=== PATIENT | female | born 1990 | race Caucasian/White ===

== ENCOUNTER 2020-08-01 08:08 | Outpatient (REF) | payer OTHER, SELFPAY | END 2020-08-01 08:09 | disposition home or self-care (01) | LOC: HO.LAB 08:08 | PROVIDERS: Visit Provider Internal Medicine | DX: Z20.828 Contact with and (suspected) exposure to other viral communicable diseases (principal) | CPT/HCPCS: C9803; U0003 ==

== ENCOUNTER 2020-09-11 16:37 | Outpatient (REF) | payer OTHER, SELFPAY ==
[2020-09-11 17:48] LABS: MANUAL DIFF FLAG NO
[2020-09-11 18:10] LABS: Basophils Percent Auto 0.4 % (0-2); Eosinophils Absolute Auto 0.2 X10*3/uL (0.0-0.4); Eosinophils Percent Auto 1.8 % (0-4); Hematocrit 42.3 % (37-47); Hemoglobin 13.5 g/dl (12.0-16.0); Imm Gran Abs Auto 0.04 X10*3/uL (0.00-0.03); Imm Gran Pct Auto 0.4 % (0.0-0.4); Lymphocytes Absolute Auto 1.8 X10*3/uL (1.2-4.9); Lymphocytes Percent Auto 19.6 % (20-40); Mean Corpuscular HGB Conc 31.9 g/dl (31.0-35.0); Mean Corpuscular Hemoglobin 29.4 pg (27.0-33.0); Mean Corpuscular Volume 92.2 fL (80-98); Mean Platelet Volume 11.1 fL (9.4-12.3); Monocytes Absolute Auto 0.8 X10*3/uL (0.1-1.2); Neutrophils Absolute Auto 6.5 X10*3/uL (2.0-8.3); Neutrophils Percent Auto 69.8 % (45-73); Platelet Count 415 X10*3/uL (160-400); Red Blood Count 4.59 X10*6/uL (4.20-5.50); Red Cell Distribution Width 12.1 % (11.0-16.0); White Blood Count 9.4 X10*3/uL (4.8-10.8)
[2020-09-11 18:23] LABS: Alanine Aminotransferase 150 U/L (0-31); Albumin Level 4.6 g/dL (3.5-5.0); Alkaline Phosphatase 202 U/L (39-117); Anion Gap 13 (12-20); Aspartate Amino Transferase 55 U/L (5-31); Bilirubin Direct 0.2 mg/dL (0.0-0.5); Bilirubin Total 0.4 mg/dL (0.0-1.0); Blood Urea Nitrogen 9 mg/dL (9-16); Calcium 9.4 mg/dL (8.4-10.2); Carbon Dioxide 27 mmol/L (22-29); Chloride 104 mmol/L (96-108); Cholesterol 209 mg/dL; Estimated Glomerular Filt Rate > 60; Glucose Fasting 116 mg/dL (60-99); HDL Cholesterol 44 mg/dL; LDL Cholesterol Calculated 133 mg/dl; Potassium 3.9 mmol/l (3.3-5.1); Sodium 140 mmol/L (135-145); Total Protein 7.8 g/dL (6.5-8.0); Triglycerides 164 mg/dL
== END 2020-09-11 16:38 | disposition home or self-care (01) ==
LOC: HO.LAB 16:37
PROVIDERS: PCP Nurse Practitioner Family; Visit Provider Nurse Practitioner Family
DX: Z00.00 Encounter for general adult medical examination without abnormal findings (principal); R10.11 Right upper quadrant pain
CPT/HCPCS: 36415; 80053; 80061; 80076; 82248; 85025

== ENCOUNTER 2020-10-16 08:02 | Outpatient (REF) | payer OTHER, SELFPAY ==
--- NOTE | ~2020-10-16 | US_ITS ---
EXAMINATION: US ABDOMEN COMPLETE CLINICAL INFORMATION: Right upper quadrant pain. COMPARISON: Ultrasound abdomen 05/25/2019. CT abdomen pelvis 05/12/2018. TECHNIQUE: Real-time imaging of the abdominal viscera. FINDINGS: PANCREAS: Visualized pancreas is normal in appearance. ABDOMINAL AORTA: The proximal, mid, and distal segments are normal in caliber. INFERIOR VENA CAVA: Visualized portions are normal. LIVER: There is diffusely increased hepatic echogenicity and sound attenuation consistent with diffuse hepatic steatosis. Diffuse coarse hepatic echogenicity. The liver is normal in size. The liver contour is normal. No focal hepatic lesion. There is no intrahepatic biliary duct dilatation seen. GALLBLADDER: Surgically absent. COMMON BILE DUCT: Normal in caliber measuring 0.6 cm in diameter. RIGHT KIDNEY: Normal. No hydronephrosis. No renal calculi or focal parenchymal lesions. The kidney measures 12.6 cm in maximum dimension. LEFT KIDNEY: Normal. No hydronephrosis. No renal calculi or focal parenchymal lesions. The kidney measures 12.1 cm in maximum dimension. SPLEEN: Normal. The spleen measures 12.5 cm in maximum dimension. FREE FLUID: None. US/US abdomen complete IMPRESSION: There is diffusely increased, coarsened hepatic echogenicity and sound attenuation, consistent with diffuse hepatic steatosis. No focal lesion seen. No biliary ductal dilatation. Status post cholecystectomy.
== END 2020-10-16 08:03 | disposition home or self-care (01) ==
LOC: HO.US 08:02
PROVIDERS: PCP Nurse Practitioner Family; Visit Provider Nurse Practitioner Family
DX: R10.11 Right upper quadrant pain (principal)
CPT/HCPCS: 76700

== ENCOUNTER 2021-06-14 12:02 | Outpatient (REF) | payer OTHER, SELFPAY ==
[2021-06-14 12:16] LABS: Hematocrit 40.5 % (37-47); Hemoglobin 13.4 g/dl (12.0-16.0); Mean Corpuscular HGB Conc 33.1 g/dl (31.0-35.0); Mean Corpuscular Volume 90.6 fL (80-98); Platelet Count 383 X10*3/uL (160-400); Red Blood Count 4.47 X10*6/uL (4.20-5.50); Red Cell Distribution Width 12.6 % (11.0-16.0); White Blood Count 9.4 X10*3/uL (4.8-10.8)
[2021-06-14 12:49] LABS: Estimated Average Glucose 117 mg/dL; Hemoglobin A1c % 5.7 %
[2021-06-14 13:07] LABS: Alanine Aminotransferase 105 U/L (0-31); Albumin Level 4.5 g/dL (3.5-5.0); Alkaline Phosphatase 168 U/L (39-117); Anion Gap 14 (12-20); Aspartate Amino Transferase 44 U/L (5-31); Bilirubin Total 0.6 mg/dL (0.0-1.0); Blood Urea Nitrogen 9 mg/dL (9-16); Calcium 9.9 mg/dL (8.4-10.2); Carbon Dioxide 25 mmol/L (22-29); Chloride 106 mmol/L (96-108); Cholesterol 199 mg/dL; Estimated Glomerular Filt Rate > 60; Glucose Fasting 113 mg/dL (60-99); HDL Cholesterol 37 mg/dL; LDL Cholesterol Calculated 140 mg/dl; Potassium 4.9 mmol/L (3.3-5.1); Sodium 140 mmol/L (135-145); Total Protein 7.7 g/dL (6.5-8.0); Triglycerides 113 mg/dL
[2021-06-14 13:22] LABS: TSH reflex Free T4 3.39 uIU/mL (0.32-4.0)
== END 2021-06-14 12:03 | disposition home or self-care (01) ==
LOC: HO.LAB 12:02
PROVIDERS: PCP Physician Assistant; Visit Provider Physician Assistant
DX: R73.09 Other abnormal glucose (principal); E66.9 Obesity, unspecified; I10 Essential (primary) hypertension
CPT/HCPCS: 36415; 80053; 80061; 83036; 84443; 85027

== ENCOUNTER 2021-06-21 13:18 | Outpatient (REF) | payer OTHER, SELFPAY ==
--- NOTE | ~2021-06-21 | XR_ITS ---
EXAMINATION: XR THORACIC SPINE XR LUMBAR SPINE XR SACROILIAC JOINTS CLINICAL INFORMATION: Back pain. COMPARISON: Thoracic spine and lumbar spine radiographs dated 05/16/2019. TECHNIQUE: AP and lateral views of the thoracic spine. AP and lateral views of the lumbar spine, and lateral spot view of the lumbosacral junction. AP and bilateral oblique views of the sacroiliac joints. FINDINGS: THORACIC SPINE: Spinal alignment is anatomic. No spondylolisthesis. Vertebral body heights and intervertebral disc spaces are relatively well maintained and similar compared to prior. Very mild endplate osteophyte formation again noted at the mid thoracic levels, similar compared to prior. The visualized posterior elements are unremarkable. There are no acute osseous findings. Right upper quadrant surgical clips are again visualized. LUMBAR SPINE: There are 5 [id number]-[id number] lumbar-type vertebral bodies. Spinal alignment is anatomic. No spondylolisthesis. Vertebral body heights and intervertebral disc spaces are well maintained. No significant degenerative change. Previously noted anatomic variant L4 limbus vertebra is not as well seen due to slight differences in patient positioning. The posterior elements are unremarkable. There are no acute osseous findings. Surgical clip again seen projecting over the right hemipelvis, similar compared to prior. SACROILIAC JOINTS: The bilateral sacroiliac joints are normal and symmetric in appearance. There is no abnormal sclerosis, narrowing, or fusion. No appreciable osteophyte formation. The imaged bony pelvis and hips appear unremarkable. XR/XR lumbar spine 2-3V IMPRESSION: THORACIC SPINE: Mild multilevel mid thoracic spondylosis without significant interval change. Otherwise, unremarkable radiographs of the thoracic spine. LUMBAR SPINE: Unremarkable radiographs of the lumbar spine. SI JOINTS: Unremarkable radiographs of the sacroiliac joints.
--- NOTE | ~2021-06-21 | XR_ITS ---
EXAMINATION: XR THORACIC SPINE XR LUMBAR SPINE XR SACROILIAC JOINTS CLINICAL INFORMATION: Back pain. COMPARISON: Thoracic spine and lumbar spine radiographs dated 05/16/2019. TECHNIQUE: AP and lateral views of the thoracic spine. AP and lateral views of the lumbar spine, and lateral spot view of the lumbosacral junction. AP and bilateral oblique views of the sacroiliac joints. FINDINGS: THORACIC SPINE: Spinal alignment is anatomic. No spondylolisthesis. Vertebral body heights and intervertebral disc spaces are relatively well maintained and similar compared to prior. Very mild endplate osteophyte formation again noted at the mid thoracic levels, similar compared to prior. The visualized posterior elements are unremarkable. There are no acute osseous findings. Right upper quadrant surgical clips are again visualized. LUMBAR SPINE: There are 5 axu-ysx-yvupogf lumbar-type vertebral bodies. Spinal alignment is anatomic. No spondylolisthesis. Vertebral body heights and intervertebral disc spaces are well maintained. No significant degenerative change. Previously noted anatomic variant L4 limbus vertebra is not as well seen due to slight differences in patient positioning. The posterior elements are unremarkable. There are no acute osseous findings. Surgical clip again seen projecting over the right hemipelvis, similar compared to prior. SACROILIAC JOINTS: The bilateral sacroiliac joints are normal and symmetric in appearance. There is no abnormal sclerosis, narrowing, or fusion. No appreciable osteophyte formation. The imaged bony pelvis and hips appear unremarkable. XR/XR thoracic spine 2V IMPRESSION: THORACIC SPINE: Mild multilevel mid thoracic spondylosis without significant interval change. Otherwise, unremarkable radiographs of the thoracic spine. LUMBAR SPINE: Unremarkable radiographs of the lumbar spine. SI JOINTS: Unremarkable radiographs of the sacroiliac joints.
--- NOTE | ~2021-06-21 | XR_ITS ---
EXAMINATION: XR THORACIC SPINE XR LUMBAR SPINE XR SACROILIAC JOINTS CLINICAL INFORMATION: Back pain. COMPARISON: Thoracic spine and lumbar spine radiographs dated 05/16/2019. TECHNIQUE: AP and lateral views of the thoracic spine. AP and lateral views of the lumbar spine, and lateral spot view of the lumbosacral junction. AP and bilateral oblique views of the sacroiliac joints. FINDINGS: THORACIC SPINE: Spinal alignment is anatomic. No spondylolisthesis. Vertebral body heights and intervertebral disc spaces are relatively well maintained and similar compared to prior. Very mild endplate osteophyte formation again noted at the mid thoracic levels, similar compared to prior. The visualized posterior elements are unremarkable. There are no acute osseous findings. Right upper quadrant surgical clips are again visualized. LUMBAR SPINE: There are 5 itc-khk-ymqykxr lumbar-type vertebral bodies. Spinal alignment is anatomic. No spondylolisthesis. Vertebral body heights and intervertebral disc spaces are well maintained. No significant degenerative change. Previously noted anatomic variant L4 limbus vertebra is not as well seen due to slight differences in patient positioning. The posterior elements are unremarkable. There are no acute osseous findings. Surgical clip again seen projecting over the right hemipelvis, similar compared to prior. SACROILIAC JOINTS: The bilateral sacroiliac joints are normal and symmetric in appearance. There is no abnormal sclerosis, narrowing, or fusion. No appreciable osteophyte formation. The imaged bony pelvis and hips appear unremarkable. XR/XR sacroiliac joint min 3V IMPRESSION: THORACIC SPINE: Mild multilevel mid thoracic spondylosis without significant interval change. Otherwise, unremarkable radiographs of the thoracic spine. LUMBAR SPINE: Unremarkable radiographs of the lumbar spine. SI JOINTS: Unremarkable radiographs of the sacroiliac joints.
[2021-06-24 08:06] LABS: HBS Num1 0.76 mIU/mL (0-7.99); HBc Num1 0.07 S/CO (0.00-0.79); HBsAGNum1 0.18 S/CO (0.00-0.99); Hepatitis B Core Antibody Nonreactive (Nonreactive); Hepatitis B Surface Antigen Negative (Negative); ~Hepatitis B Surface Antibody NONREACTIVE (Nonreactive)
[2021-06-24 08:15] LABS: HIV AB/AG Nonreactive (Nonreactive); HIV Num 1 0.07 S/CO (0.00-0.99); ~HepC Num1 0.09 S/CO (0.00-0.79); ~Hepatitis C Antibody Nonreactive (Nonreactive)
[2021-06-26 08:31] LABS: Hepatitis A Antibody IgM 0.14 Index (0-0.79); ~Hepatitis A Antibody IgM Nonreactive (Nonreactive)
== END 2021-06-21 13:19 | disposition home or self-care (01) ==
LOC: HO.XRAY 13:18
PROVIDERS: PCP Physician Assistant; Referring Provider Physician Assistant; Visit Provider Nurse Practitioner
DX: Z11.4 Encounter for screening for human immunodeficiency virus [HIV] (principal); R74.8 Abnormal levels of other serum enzymes; K75.81 Nonalcoholic steatohepatitis (NASH); K91.5 Postcholecystectomy syndrome; M54.6 Pain in thoracic spine; M54.50 Low back pain, unspecified
CPT/HCPCS: 36415; 72070; 72100; 72202; 86704; 86706; 86709; 86803; 87340; 87389; 99202

== ENCOUNTER 2021-07-01 08:29 | Outpatient (REF) | payer OTHER, SELFPAY ==
--- NOTE | ~2021-07-01 | US_ITS ---
EXAMINATION: US COMPLETE ABDOMEN WITH LIVER ELASTOGRAPHY CLINICAL INFORMATION: FRAGA COMPARISON: Previous abdominal ultrasound most recent October [address] scans of the abdomen and pelvis most recent May 2018 TECHNIQUE: Real-time imaging of the abdominal viscera. Noninvasive ultrasound liver fibrosis assessment is performed using Melvin ElastPQ point quantification shear wave elastography (pSWE) with a C5-2 MHz transducer. Multiple elastography samples are obtained. FINDINGS: PANCREAS: The head and body the pancreas are normal. The tail is not well visualized due to bowel gas. ABDOMINAL AORTA: The proximal, middle, and distal aortic segments are normal in caliber. INFERIOR VENA CAVA: Visualized portions are normal. LIVER: Liver echotexture is increased probably representing fatty infiltration. The liver is enlarged. The liver is normal in contour. No focal liver lesion or biliary duct dilatation is seen. The right lobe measures 21 cm in length. The left lobe measures 14 cm in length. Portal flow is appropriate/ hepatopedal. Shear wave liver elastography median stiffness is 0.2 m/s (reference: normal median stiffness is 1.3 m/s or less). IQR/median stiffness to assess sampling precision is 1.5 (reference: good quality data set is IQR/median stiffness of 0.15 or less). GALLBLADDER: Surgically removed. COMMON BILE DUCT: Normal in caliber measuring 0.5 cm in diameter. RIGHT KIDNEY: There is question of a small stone in the lower pole measuring 4 mm. No hydronephrosis. No focal parenchymal lesions. The kidney measures 11.5 cm in maximum dimension. LEFT KIDNEY: Normal. No hydronephrosis. No renal calculi or focal parenchymal lesions. The kidney measures 12 cm in maximum dimension. SPLEEN: Slightly enlarged. The spleen measures 13 cm in maximum dimension. FREE FLUID: None. US/US abdomen comp w elastography IMPRESSION: 1. Impression: Enlarged echogenic liver probably representing fatty infiltration. Mild splenomegaly. Question small right renal stone. Limited visualization of the tail the pancreas. 2. Liver elastography: Slightly limited due to sampling error. In the absence of other known clinical signs, rules out compensated advanced chronic liver disease. REFERENCE: Society of Radiologists in Ultrasound Liver Stiffness Thresholds (2020): LIVER STIFFNESS THRESHOLDS: *Liver Stiffness equal or less than 1.3 m/s: High probability of being normal. *Liver Stiffness less than 1.7 m/s: In the absence of other known clinical signs, rules out compensated advanced chronic liver disease. *Liver Stiffness 1.7-2.1 m/s: Suggestive of compensated advanced chronic liver disease but need further test for confirmation. *Liver Stiffness over 2.1 m/s: Rules in compensated advanced chronic liver disease. *Liver Stiffness over 2.4 m/s: Suggestive of clinically significant portal hypertension. QUALITY OF DATA SET: *IQR/Median value equal or less than 0.15 implies a quality data set. *IQR/Median value over 0.15 implies a poor quality data set. SIGNIFICANT CHANGE FROM PRIOR EXAM: Significant change if liver stiffness measurement is 10% or greater from prior exam. OTHER CONSIDERATIONS: The stage of liver fibrosis may be overestimated in the setting of acute hepatitis, liver inflammation, elevated liver function tests, hepatic vascular congestion, obstructive cholestasis, non-fasting state, and infiltrative diseases such as amyloidosis and lymphoma. In some patients with NAFLD, the liver stiffness thresholds for compensated advanced chronic liver disease may be lower. In causes other than viral hepatitis and NAFLD, liver stiffness thresholds are not well established.
== END 2021-07-01 08:30 | disposition home or self-care (01) ==
LOC: HO.US 08:29
PROVIDERS: PCP Physician Assistant; Visit Provider Nurse Practitioner
DX: K75.81 Nonalcoholic steatohepatitis (NASH) (principal); R74.8 Abnormal levels of other serum enzymes; M54.6 Pain in thoracic spine
CPT/HCPCS: 76705; 76981

== ENCOUNTER → 2021-07-05 13:02 | Outpatient (BNVA) | payer OTHER, SELFPAY | PROVIDERS: PCP Physician Assistant; Referring Provider Physician Assistant; Visit Provider Nurse Practitioner | DX: K75.81 Nonalcoholic steatohepatitis (NASH) (principal); K91.5 Postcholecystectomy syndrome; R10.11 Right upper quadrant pain; M54.6 Pain in thoracic spine | CPT/HCPCS: 99212 ==

== ENCOUNTER 2021-07-18 09:04 | Outpatient (REF) | payer OTHER, SELFPAY | END 2021-07-18 09:05 | disposition home or self-care (01) | LOC: HO.LAB 09:04 | PROVIDERS: PCP Physician Assistant; Visit Provider Internal Medicine | DX: Z20.822 Contact with and (suspected) exposure to COVID-19 (principal) | CPT/HCPCS: C9803; U0003; U0005 ==

== ENCOUNTER 2021-07-22 10:33 | Outpatient (REF) | payer OTHER, SELFPAY | END 2021-07-22 10:34 | disposition home or self-care (01) | LOC: HO.LAB 10:33 | PROVIDERS: PCP Physician Assistant; Visit Provider Internal Medicine | DX: Z20.822 Contact with and (suspected) exposure to COVID-19 (principal) | CPT/HCPCS: C9803; U0003; U0005 ==

== ENCOUNTER 2021-09-17 13:08 | Outpatient (REF) | payer OTHER, SELFPAY ==
[2021-09-17 16:01] LABS: Alanine Aminotransferase 133 U/L (0-31); Albumin Level 4.4 g/dL (3.5-5.0); Alkaline Phosphatase 161 U/L (39-117); Aspartate Amino Transferase 54 U/L (5-31); Bilirubin Direct 0.2 mg/dL (0.0-0.5); Bilirubin Total 0.4 mg/dL (0.0-1.0); Total Protein 7.7 g/dL (6.5-8.0)
[2021-09-18 13:11] LABS: Alpha Fetoprotein 2.5 ng/mL
== END 2021-09-17 13:09 | disposition home or self-care (01) ==
LOC: HO.LAB 13:08
PROVIDERS: PCP Physician Assistant; Referring Provider Physician Assistant; Visit Provider Nurse Practitioner
DX: K75.81 Nonalcoholic steatohepatitis (NASH) (principal); K21.9 Gastro-esophageal reflux disease without esophagitis; R21 Rash and other nonspecific skin eruption; K91.5 Postcholecystectomy syndrome; R10.11 Right upper quadrant pain; F17.210 Nicotine dependence, cigarettes, uncomplicated
CPT/HCPCS: 36415; 80076; 82105; 99212

== ENCOUNTER 2021-09-23 13:02 | Outpatient (REF) | payer OTHER, SELFPAY ==
[2021-09-23 13:27] LABS: Binax Internal Control QC Valid; Binax Now Covid-19 Ag Negative (Negative)
== END 2021-09-23 13:03 | disposition home or self-care (01) ==
LOC: HO.LAB 13:02
PROVIDERS: Visit Provider Internal Medicine
DX: Z20.822 Contact with and (suspected) exposure to COVID-19 (principal)
CPT/HCPCS: C9803

== ENCOUNTER → 2022-03-19 13:42 | Outpatient (BNVA) | payer OTHER, SELFPAY | PROVIDERS: PCP Physician Assistant; Referring Provider Physician Assistant; Visit Provider Nurse Practitioner | DX: K91.5 Postcholecystectomy syndrome (principal); K21.9 Gastro-esophageal reflux disease without esophagitis; K75.81 Nonalcoholic steatohepatitis (NASH); Z79.899 Other long term (current) drug therapy | CPT/HCPCS: 99212 ==

== ENCOUNTER 2022-09-30 13:25 | Outpatient (REF) | payer OTHER, SELFPAY ==
[2022-09-30 15:03] LABS: MANUAL DIFF FLAG NO
[2022-09-30 15:29] LABS: Basophils Percent Auto 0.4 % (0-2); Eosinophils Absolute Auto 0.2 X10*3/uL (0.0-0.4); Eosinophils Percent Auto 1.4 % (0-4); Hematocrit 40.7 % (37.0-47.0); Hemoglobin 13.1 g/dl (12.0-16.0); Imm Gran Abs Auto 0.04 X10*3/uL (0.00-0.03); Imm Gran Pct Auto 0.4 % (0.0-0.4); Lymphocytes Absolute Auto 1.8 X10*3/uL (1.2-4.9); Lymphocytes Percent Auto 17.3 % (20-40); Mean Corpuscular HGB Conc 32.2 g/dl (31.0-35.0); Mean Corpuscular Hemoglobin 29.4 pg (27.0-33.0); Mean Corpuscular Volume 91.5 fL (80.0-98.0); Mean Platelet Volume 10.6 fL (9.4-12.3); Monocytes Absolute Auto 0.7 X10*3/uL (0.1-1.2); Monocytes Percent Auto 6.8 % (2-11); Neutrophils Absolute Auto 7.8 x10*3/uL (2.0-8.3); Neutrophils Percent Auto 73.7 % (45-73); Platelet Count 433 X10*3/uL (160-400); Red Blood Count 4.45 X10*6/uL (4.20-5.50); Red Cell Distribution Width 12.1 % (11.0-16.0); White Blood Count 10.5 X10*3/uL (4.8-10.8)
[2022-09-30 15:50] LABS: Alanine Aminotransferase 112 U/L (0-31); Albumin Level 4.4 g/dL (3.5-5.0); Alkaline Phosphatase 170 U/L (39-117); Anion Gap 13 (12-20); Aspartate Amino Transferase 45 U/L (5-31); Bilirubin Total 0.6 mg/dL (0.0-1.0); Blood Urea Nitrogen 6 mg/dL (9-16); Calcium 9.5 mg/dL (8.4-10.2); Carbon Dioxide 29 mmol/L (22-29); Chloride 101 mmol/L (96-108); Estimated Glomerular Filt Rate > 60; Glucose Random 92 mg/dL (60-115); Sodium 139 mmol/L (135-145); Total Protein 7.5 g/dL (6.5-8.0)
[2022-10-03 13:59] LABS: Alpha Fetoprotein 2.3 ng/mL
== END 2022-09-30 13:26 | disposition home or self-care (01) ==
LOC: HO.LAB 13:25
PROVIDERS: PCP Physician Assistant; Visit Provider Nurse Practitioner
DX: K75.81 Nonalcoholic steatohepatitis (NASH) (principal); K21.9 Gastro-esophageal reflux disease without esophagitis; K91.5 Postcholecystectomy syndrome
CPT/HCPCS: 36415; 80053; 82105; 85025; 99212

== ENCOUNTER 2023-03-27 13:44 | Outpatient (AMB) | payer OTHER, SELFPAY ==
--- NOTE | 2023-03-27 13:47 | MHC.OFFVIS ---
Intake Vital Signs 03/27/23 13:48 Height 5 ft 8 in Weight 283 lb 15.286 oz BMI 43.2 BP 147/100 H Blood Pressure Location Lt brachial Position Sitting Pulse 86 Intake Visit Reasons: 6 month follow up Intake Note: Pt presents to the office for a 6 moths follow up. CC: Patient reports doing better and denies any new GI symptoms. 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 She also continues on her omeprazole and this is controlling her heartburn is well.? I tell her that she is really quite overdue for labs and ultrasound monitoring for her non alcoholic fatty liver, and I encouraged her to go today to get labs done.? She says that she will and will get an ultrasound scheduled. She remains satisfied with her GI regimen.? I will see her back in 6 months. (2) FRAGA (nonalcoholic steatohepatitis): ?Comment: BASELINE LABS 05/16/19 Ferritin 129 H Udujz-[id number]-Ulkaeicvvvh 134 Ceruloplasmin 36 Anti-Smooth Muscle Ab <20 06/21/21 Hepatitis A IgM Ab Nonreactive Hep Bs Antigen Negative Hep Bs Antibody NONREACTIVE Hep B Core Total Ab Nonreactive Hepatitis C Ab (EIA) Nonreactive HIV 1&2 Ab/P24 Ag 4thGn Nonreactive Shear wave liver elastography median stiffness is 0.2 m/s (reference: normal median stiffness is 1.3 m/s or less). WBC 9.4 Hgb 13.4 Hct 40.5 MCV 90.6 Plt Count 383 Estimated GFR Direct Bilirubin 0.2 GGT 356 H Estimated GFR > 60 Hemoglobin A1c % 5.7 Total Bilirubin 0.6 AST 44 H ALT 105 H Alkaline Phosphatase 168 H TSH 3.39 CURRENT LABS; 09/17/2200/ ?[id number] Hgb A1c (Clinic) 5.7 Total Bilirubin 0.4 Direct Bilirubin 0.2 AST 54 H ALT 133 H Alkaline Phosphatase 161 H Alpha Fetoprotein 2.5 ULTRASOUND WITH elastography 07/2021 Shear wave liver elastography median stiffness is 0.2 m/s (reference: normal median stiffness is 1.3 m/s or less). US/US abdomen comp w elastography IMPRESSION: 1. Impression: Enlarged echogenic liver probably representing fatty infiltration. Mild splenomegaly. Question small right renal stone. Limited visualization of the tail the pancreas. ? 2. Liver elastography:? Slightly limited due to sampling error.? In the absence of other known clinical signs, rules out compensated advanced chronic liver disease. ?Code(s): K75.81 - Nonalcoholic steatohepatitis (FRAGA) (3) Post-cholecystectomy syndrome: ?Code(s): K91.5 - Postcholecystectomy syndrome ? ? ? Orders: Orders Alpha FetoproteinA Today K75.81 - Nonalcoho lic steatohepatiti s (FRAGA) ? Comprehensive Met. Panel Today K75.81 - Nonalcoho lic steatohepatiti s (FRAGA) ? Complete Blood Cou nt Auto Diff Today K75.81 - Nonalcoho lic steatohepatiti s (FRAGA) ? US abdomen limited Today K75.81 - Nonalcoho lic steatohepatiti s (FRAGA) ? Medications: New sucralfate (Carafa te) 3 grams (3 x 1 gra m) PO DAILY 90 tab s 6RF K91.5 - Postcholec ystectomy syndrom LABS: Laboratory Tests 09/17/21 03/06/22 09/30/22 14:50 13:39 15:02 WBC 10.5 Hgb 13.1 Hct 40.7 Plt Count 433 H Estimated GFR Hgb A1c (Clinic) 5.7 Total Bilirubin Direct Bilirubin 0.2 AST ALT Alkaline Phosphata se Alpha Fetoprotein 09/30/22 09/30/22 15:02 15:02 WBC Hgb Hct Plt Count Estimated GFR > 60 Hgb A1c (Clinic) Total Bilirubin 0.6 Direct Bilirubin AST 45 H ALT 112 H Alkaline Phosphata se 170 H Alpha Fetoprotein 2.3 ULTRASOUND OF THE ABDOMEN Not yet obtained TODAY'S VISIT She was never contacted for the US. Her diarrhea is improved she does not have so much post prandial urgency. She uses the carafate prn when she needs it. She continues on her famotidine. She is drinking a protein meal replacement but still is not successful in losing weight, yet her liver labs are slightly improved since last measurement. Return office visit in 6 months [facility] Medical History Physical exam Right upper quadrant abdominal pain Surgical History History of cholecystectomy History of esophagogastroduodenoscopy (EGD) History of removal of cyst Family History Father Medical history unknown Mother Diabetes Hypertension Mental health disorder Fibromyalgia Social History Housing: House Alcohol intake: never Patient Tobacco Use Status: Former Tobacco user Quit Date: 03/04/2022 Tobacco use type: Cigarette e-Cigarette/Vaping Use: Never Used Second Hand Smoke Exposure: No service: No Current occupational status: unemployed Current occupation: [employer]. Cognitive needs: No Hearing needs: No Vision needs: No Review of Systems Const Denies fatigue, Denies fever(s), Denies night sweats, Denies poor appetite and Denies weight loss Eyes Details: glasses Reports requires corrective lenses ENT Reports Normal hearing present, Denies dental pain, Denies dysphagia, Denies hearing loss, Denies mouth pain, Denies odynophagia, Denies throat swelling, Denies tongue swelling and Reports other (Dentition adequate) Card Reports no additional complaints Resp Reports no additional complaints GI Denies abdominal pain, Denies melena, Denies bloating, Denies hematochezia, Denies constipation, Denies GI cramping, Denies dysphagia, Denies excessive flatus, Denies early satiety, Reports heartburn, Denies diarrhea, Denies nausea, Denies odynophagia, Denies vomiting and Denies hematemesis Skin/Breast Denies pruritus, Denies lesions, Denies rash and Denies jaundice Neuro Reports Normal hearing present and Denies Abnormal speech present Endo Denies fatigue Aller/Immun Denies throat swelling and Denies tongue swelling Physical Exam Vital Signs: Last Vital Signs Pulse 86 03/27/23 13:48 BP 147/100 H 03/27/23 13:48 BMI result Body Mass Index 43.2 Const General: cooperative, no acute distress, well developed and well groomed Nutritional Appearance: well nourished and obese morbidly obese Orientation/consciousness: oriented to person, oriented to place and oriented to time Limitations: No language barrier HEENT Head: Yes normocephalic and Yes atraumatic Eyes General: appearance normal, both eyes and all related structures Pupils: Equal, round and reactive pupils present Neck Neck: Yes normal visual inspection and Yes no lymphadenopathy Thyroid: Thyroid normal Resp Effort & Inspection: normal respiratory effort and able to speak in complete sentences Auscultation: clear to auscultation bilaterally Cardio Rate: regular rate Rhythm: regular rhythm Heart sounds: Normal, physiologic split S2 sound present Peripheral pulses: radial pulses present and posterior tibial pulses present GI Inspection: No distended, Yes Abdominal panniculus present and Yes obesity Palpation (GI): Soft to palpation, nontender, no guarding, not rigid and No hepatosplenomegaly present Percussion: Yes normal to percussion Auscultation: normal bowel sounds Rectal Exam - Female: deferred Skin General skin exam: no rashes or lesions noted, turgor normal, skin not dry, no jaundice, No spider nevi and no striae Rashes: no rashes Nails: normal Neuro General: oriented to person, oriented to place and oriented to time Cranial nerves: Yes Equal, round and reactive pupils present and Yes Normal hearing present Speech: No Abnormal speech present Extrem General: Yes normal to inspection, No clubbing, No cyanosis and No edema Psych Appearance: grossly normal and well kempt Mental Status: mental status grossly normal Speech and movement: Normal speech and movement present Affect: normal affect Attitude: cooperative Thought process: Normal thought process present and not confabulating Thought content: Normal thought content present Insight: Limited insight present (Psych) Judgement: Limited judgement present (Psych) Results Reviewed Results Reviewed: Laboratory Tests 09/17/21 03/06/22 09/30/22 14:50 13:39 15:02 WBC 10.5 Hgb 13.1 Hct 40.7 Plt Count 433 H Estimated GFR Hgb A1c (Clinic) 5.7 Total Bilirubin Direct Bilirubin 0.2 AST ALT Alkaline Phosphatase Alpha Fetoprotein 09/30/22 09/30/22 15:02 15:02 WBC Hgb Hct Plt Count Estimated GFR > 60 Hgb A1c (Clinic) Total Bilirubin 0.6 Direct Bilirubin AST 45 H ALT 112 H Alkaline Phosphatase 170 H Alpha Fetoprotein 2.3 Assessment & Plan Assessment & Plan (1) FRAGA (nonalcoholic steatohepatitis): Comment: BASELINE LABS 05/16/19 Ferritin 129 H Qlcrg-9-Fdiectllbab 134 Ceruloplasmin 36 Anti-Smooth Muscle Ab <20 06/21/21 Hepatitis A IgM Ab Nonreactive Hep Bs Antigen Negative Hep Bs Antibody NONREACTIVE Hep B Core Total Ab Nonreactive Hepatitis C Ab (EIA) Nonreactive HIV 1&2 Ab/P24 Ag 4thGn Nonreactive Shear wave liver elastography median stiffness is 0.2 m/s (reference: normal median stiffness is 1.3 m/s or less). WBC 9.4 Hgb 13.4 Hct 40.5 MCV 90.6 Plt Count 383 Estimated GFR Direct Bilirubin 0.2 GGT 356 H Estimated GFR > 60 Hemoglobin A1c % 5.7 Total Bilirubin 0.6 AST 44 H ALT 105 H Alkaline Phosphatase 168 H TSH 3.39 CURRENT LABS; 09/30/22 433 H Estimated GFR Hgb A1c (Clinic) 5.7 Total Bilirubin Direct Bilirubin 0.2 Estimated GFR > 60 Hgb A1c (Clinic) Total Bilirubin 0.6 AST 45 H ALT 112 H Alkaline Phosphatase 170 H Alpha Fetoprotein 2.3 ULTRASOUND WITH elastography 07/2021 Shear wave liver elastography median stiffness is 0.2 m/s (reference: normal median stiffness is 1.3 m/s or less). US/US abdomen comp w elastography IMPRESSION: 1. Impression: Enlarged echogenic liver probably representing fatty infiltration. Mild splenomegaly. Question small right renal stone. Limited visualization of the tail the pancreas. ? 2. Liver elastography:? Slightly limited due to sampling error.? In the absence of other known clinical signs, rules out compensated advanced chronic liver disease. Code(s): K75.81 - Nonalcoholic steatohepatitis (FRAGA) Plan: ULTRASOUND OF THE ABDOMEN Not yet obtained TODAY'S VISIT She was never contacted for the US. Her diarrhea is improved she does not have so much post prandial urgency. She uses the carafate prn when she needs it. She continues on her famotidine. She is drinking a protein meal replacement but still is not successful in losing weight, yet her liver labs are slightly improved since last measurement. Return office visit in 6 months (2) Elevated TSH: Code(s): R79.89 - Other specified abnormal findings of blood chemistry Orders: Orders TSH reflex Free T4 03/27/23 R79.89 - Other specified abnormal findings of blood chemistry Medications: Changed From sucralfate 3 grams (3 x 1 gram) PO DAILY 90 tabs 6RF K91.5 - Postcholecystectomy syndrome To sucralfate (Carafate) 3 grams (3 x 1 gram) PO DAILY 90 tabs 6RF K91.5 - Postcholecystectomy syndrome Refilled famotidine (Pepcid) 40 mg PO BEDTIME 30 tabs 6RF 30 days K21.9 - Gastro-esophageal reflux disease without esophagitis omeprazole 40 mg PO DAILY 30 caps 6RF 30 days K21.9 - Gastro-esophageal reflux disease without esophagitis Coding Level of Care Code Est Pt Level 3 (14941) Diagnoses FRAGA (nonalcoholic steatohepatitis) K75.81 Elevated TSH R79.89
[2023-03-27 13:48] VITALS: BP 147/100; PULSE 86; BMI 43.2
== END 2023-03-27 14:39 | disposition home or self-care (01) ==
PROVIDERS: Visit Provider Nurse Practitioner
DX: K75.81 Nonalcoholic steatohepatitis (NASH) (principal); R79.89 Other specified abnormal findings of blood chemistry
CPT/HCPCS: 99213

== ENCOUNTER 2023-03-27 13:44 | Outpatient (REF) | payer OTHER, SELFPAY | END 2023-03-27 13:45 | disposition home or self-care (01) | LOC: HO.LAB 13:44 | PROVIDERS: Visit Provider Nurse Practitioner | DX: K75.81 Nonalcoholic steatohepatitis (NASH) (principal); R79.89 Other specified abnormal findings of blood chemistry | CPT/HCPCS: 36415; 84443; 99212 ==

== ENCOUNTER 2023-08-04 16:33 | Outpatient (REF) | payer OTHER, SELFPAY ==
--- NOTE | ~2023-08-04 | XR_ITS ---
EXAMINATION: XR CHEST CLINICAL INFORMATION: Bronchitis COMPARISON: Chest radiograph from 08/23/2017 TECHNIQUE: 2 views of the chest were obtained. FINDINGS: Very slight right basilar atelectasis. No pneumothorax. Trachea is midline. Cardiac mediastinal silhouette is not enlarged. No large pleural effusion. Osseous structures are intact. Soft tissues are unremarkable. XR/XR chest 2V IMPRESSION: Very slight right basilar atelectasis.
== END 2023-08-04 16:34 | disposition home or self-care (01) ==
LOC: HO.XRAY 16:33
PROVIDERS: PCP Physician Assistant; Visit Provider Physician Assistant
DX: J40 Bronchitis, not specified as acute or chronic (principal)
CPT/HCPCS: 71046

== ENCOUNTER 2023-10-19 07:38 | Outpatient (AMB) | payer OTHER, SELFPAY ==
[2023-10-19 07:58] VITALS: BP 120/82; BMI 42.6
--- NOTE | 2023-10-19 07:58 | MHC.PC.OV ---
Vital Signs 10/19/23 07:58 Height 5 ft 8 in Weight 280 lb BMI 42.6 BP 120/82 Blood Pressure Location Lt brachial Position Sitting Intake Visit Reasons: Pain in my ribs Intake Note: Physical exam, pain on ribs [employer] Manager Required: No Accompanied by: Self / Same As Patient Allergies bee venom protein (honey bee) Allergy (Unknown, Verified 10/19/23 08:12) bee sting- localized swelling cefazolin [From ANCEF] Allergy (Unknown, Verified 10/19/23 08:12) SWELLING Cefazolin Sodium Allergy (Unknown, Verified 10/19/23 08:12) Swelling Medication List - Last Reconciled 10/19/23 by Eulogio Sanon PA-C albuterol sulfate 90 mcg/actuation (ProAir HFA) 1 puff inhalation QID 30 days Tobacco use date assessed: 10/19/23 Dental Screening Dental Screen Date: 10/19/23 Did you have a dental visit in the last 12 months?: No Did you have a dental problem in the last 6 months where you did not have access to dental care?: No Was dental information given to patient?: Patient has dentist HPI Pain in my ribs HPI Details Patient is a 33-year-old female here today for for annual physical.? Patient has a past history significant for obesity, elevated liver enzymes. Concerns--> reports she has been having a lot of trouble losing weight. Has lost a few lb though had a viral illness recently. Does have some GERD like symptoms and is interested in an antacid. ?chronic? medical conditions--> Elevated liver enzyme:?? Patient is now followed by gastroenterology, She did have an ultrasound of her abdomen October 2020 showing-- >?There is diffusely increased, coarsened hepatic echogenicity and sound attenuation, consistent with diffuse hepatic steatosis. . .? Former smoker:? Quit smoking in 2021. .. Obesity: Patient does understand her BMI is over 30 and will work on being more physically active and adapt to better eating habits to reduce her weight .. .. Asthma: Reports her asthma has been well controlled.? Has been better since she quit smoking as well. She reports only using her albuterol inhaler infrequently. Manager Lab: Has not had a Pap, willing to call [facility] to establish care. Vaccines: : Up-to-date with pneumonia vaccine, declines flu vaccine, needs Tdap [facility] Medical History Physical exam Right upper quadrant abdominal pain Surgical History History of esophagogastroduodenoscopy (EGD) History of removal of cyst History of cholecystectomy Family History Father Medical history unknown Mother Diabetes Hypertension Mental health disorder Fibromyalgia Hypothyroid Social History Housing: House Alcohol intake: never Patient Tobacco Use Status: Former Tobacco user Quit Date: 03/04/2022 Tobacco use type: Cigarette e-Cigarette/Vaping Use: Never Used Second Hand Smoke Exposure: No service: No Current occupational status: employed Current occupation: [employer]. Current occupational exposures/hazards: No Cognitive needs: No Hearing needs: No Vision needs: Yes Questionnaire PHQ-9 Over the last 2 weeks, how often have you been bothered by any of the following problems? 1. Little interest or pleasure in doing things: not at all 2. Feeling down, depressed, or hopeless: not at all 3. Trouble falling or staying asleep, or sleeping too much: not at all 4. Feeling tired or having little energy: not at all 5. Poor appetite or overeating: not at all 6. Feeling bad about yourself - or that you are a failure or have let yourself or your family down: not at all 7. Trouble concentrating on things, such as reading the newspaper or watching television: not at all 8. Moving or speaking so slowly that other people could have noticed. Or the opposite - being so fidgety or restless that you have been moving around a lot more than usual: not at all 9. Thoughts that you would be better off or of hurting yourself in some way: not at all Total score: 0 Depression Screening Interpretation: Negative Depression Screening Done: Yes 55798 - PHQ-9 Billing: Yes Source: Developed by Drs. Stef Nation, Ada Cleary, Pan Mclean and colleagues, with an educational donna from [employer]. Thrive Questionnaire Date Thrive assessed: 10/19/23 I am a: Patient What is your living situation today?: I have a steady place to live Within the past 12 months, did the food you bought not last and you didn't have the money to get more?: Never true Within the past 12 months, did you worry whether your food would run out before you got money to buy more?: Never true Do you have trouble paying for medicines?: No Do you have trouble getting transportation to medical appointments?: No Do you have trouble paying your heating and electricity bill?: No Do you have trouble taking care of your child, family member or friend?: No Do you have trouble with day-to-day activities such as bathing, preparing meals, shopping, managing finances, etc.?: No Are you currently unemployed and looking for a job?: No Are you interested in more education?: No Please select the resources that you would like help with: None Currently or been in a relationship where the following occur: no concerns reported THRIVE Score: 0 AUDIT C Alcohol Use Questionnaire (AUDIT-C) 1. How often do you have a drink containing alcohol?: Never Total Score: 0 PAMELA-7 AMB Questionnaire PAMELA-7 Date PAMELA - 7 assessed: 10/19/23 Feeling nervous, anxious, or on edge: 0 = Not at all Not being able to stop or control worryin = Not at all Worrying too much about different things: 0 = Not at all Trouble relaxin = Not at all Being so restless that it is hard to sit still: 0 = Not at all Becoming easily annoyed or irritable: 0 = Not at all Feeling afraid as if something awful might happen: 0 = Not at all Total PAMELA-7 score (0-4 normal; 5-9 mild; 10-14 moderate; 15-21 severe): 0 Source: Developed by Drs. Stef Nation, Ada Cleary, Pan Mclean and colleagues, with an educational donna from [employer]. PAMELA-7 Assessment Billing PAMELA-7 Assessment Tool: PAMELA-7 Assessment 52259 Review of Systems Const Denies body aches, Denies chills, Denies excessive sweating, Denies fatigue, Denies fever(s) and Denies headache(s) Eyes Denies blurry vision ENT Denies dysphagia, Denies vertigo, Denies dizziness, Denies headache(s), Denies hearing loss and Denies tinnitus Card Denies chest pain, Denies chest pain with activity, Denies syncope, Denies irregular heart rhythm and Denies dyspnea Resp Denies chest congestion, Denies cough, Denies hemoptysis, Denies dyspnea and Denies wheezing GI Denies abdominal pain, Denies melena, Denies hematochezia, Denies coffee ground emesis, Denies dysphagia, Denies diarrhea, Denies nausea and Denies vomiting Denies urinary frequency, Denies dysuria, Denies urinary hesitancy and Denies urinary urgency Musc Denies arthralgias, Denies limited range of motion, Denies muscle cramps and Denies muscle weakness Skin/Breast Denies rash and Denies skin ulcer Neuro Denies Abnormal speech present, Denies confusion, Denies vertigo, Denies dizziness, Denies syncope, Denies headache(s), Denies memory loss and Denies seizure-like activity Psych Denies anxiety, Denies confusion, Denies depression, Denies memory loss, Denies panic attacks and Denies paranoia Endo Denies excessive sweating, Denies fatigue, Denies flushing, Denies polydipsia and Denies polyuria Aller/Immun Denies wheezing Physical exam (Primary Care) Vital Signs: Last Vital Signs BP 120/82 10/19/23 07:58 BMI result Body Mass Index 42.6 BMI Assessment/Plan discussion: High Tobacco/Smoking Status: Tobacco use Status Tobacco use date assessed 10/19/23 10/19/23 07:59 Patient Tobacco Use Status Former Tobacco user 10/19/23 08:17 Tobacco use type Cigarette 10/19/23 08:17 e-Cigarette/Vaping Use Never Used 10/19/23 08:17 PHQ-9: PHQ-9 Score PHQ-9: Total score 0 10/19/23 08:35 Depression Screening Interpretation: Negative Thrive Assessment: Date of Thrive Assessment Date Thrive assessed 10/19/23 10/19/23 08:08 Currently or been in a relationship where the following occur: no concerns reported Const Other: Obese General: cooperative, comfortable, no acute distress, alert and awake; No confusion Orientation/consciousness: oriented to person, oriented to place, patient oriented x3 and No confusion HENMT Head: Yes normocephalic Ears: external ears normal and TM's normal bilaterally Face and sinus: No sinus tenderness Mouth: Normal oral and palatal mucosa present and tongue normal Teeth and gingiva: dentition normal and gingiva normal Throat: Yes posterior oropharynx normal, Yes tonsils normal and Yes uvula midline Eyes Conjunctivae: conjunctivae normal Sclerae: sclerae normal Pupils: Equal, round and reactive pupils present EOM: EOMs intact bilaterally Direct Ophthalmoscopy: No no photophobia Neck Neck: Yes no lymphadenopathy, No tender and Yes no JVD Thyroid: Thyroid normal Carotids: no bruits Chest Chest palpation & inspection: no tenderness Resp Effort & Inspection: normal respiratory effort, no audible wheezes, not labored and no stridor Auscultation: no crackles, no rales, no rhonchi and no wheezes Cardio Jugular venous distension: no JVD Rate: regular rate, not bradycardic and not tachycardic Rhythm: regular rhythm Bruits: no carotid bruits Peripheral pulses: Peripheral pulses 2+ throughout GI Inspection: Yes normal to inspection, No abdominal wall ecchymosis and No visible herniation Palpation (GI): Soft to palpation, nontender, no guarding, not rigid and No hepatosplenomegaly present Auscultation: normoactive bowel sounds General: Yes no CVA tenderness Back/Spine/Pelvis Back: no CVA tenderness and No back tenderness Cervical Spine: cervical ROM normal Thoracic/Lumbar Spine: thoracic and lumbar spine normal to inspection, straight leg raise negative bilaterally, No thoraco-lumbar ROM limited and No lumbar spinal tenderness Skin Lesions: no lesions Rashes: no rashes Wounds: no wounds Neuro General: oriented to person, oriented to place, patient oriented x3, CN's II-XI intact bilaterally and No confusion Cranial nerves: Yes Equal, round and reactive pupils present and Yes Normal accommodation reflex present Cognition (Neuro): normal cognition Speech: No Abnormal speech present Gait exam (Neuro): Normal gait present Motor exam (neuro): 5/5 motor strength present throughout Extrem Right upper extremity: full ROM; no cyanosis Left upper extremity: full ROM; no cyanosis Right lower extremity: no edema Left lower extremity: no edema Psych Appearance: grossly normal Mental Status: mental status grossly normal Affect: normal affect Attitude: cooperative Thought process: Normal thought process present Immunizations Boostrix Tdap 2.5 Lf unit-8 mcg-5 Lf/0.5 mL intramuscular syringe Performing Provider: Eulogio Sanon PA-C [place] [facility] [facility] [place] [facility] Administered by: ULYSSES Moscoso on 10/19/23 08:35 Dose Route Admin Location Dispensed Lot Number Expiration Date NDC Catalyst Impregnator 0.5 mL IM Left Deltoid 0.5 mL [id number] 12/24/25 [id number] [employer] VIS Given Date VIS Provided VIS Publication Date 10/19/23 Single Vaccine 21 Eligibility Eligibility Date Funding Source Not VFC Eligible 10/19/23 Private Assessment and Plan Assessment & Plan (1) Annual physical exam: Code(s): Z00.00 - Encounter for general adult medical examination without abnormal findings (2) Asthma: Code(s): J45.909 - Unspecified asthma, uncomplicated Qualifiers: Asthma complication type: uncomplicated Asthma persistence: intermittent Asthma severity: mild Qualified Code(s): J45.20 - Mild intermittent asthma, uncomplicated Plan: Patient reports her asthma has been fairly well controlled with only p.r.n. use of albuterol inhaler. Denies any nighttime awakenings with asthma symptoms or recent exacerbations of her asthma. (3) Obese: Code(s): E66.9 - Obesity, unspecified Qualifiers: Body mass index: BMI 40.0-44.9 Obesity classification: adult class 3 (BMI >= 40) Obesity type: due to excess calories Serious obesity comorbidity presence: without serious comorbidity Qualified Code(s): E66.01 - Morbid (severe) obesity due to excess calories; Z68.41 - Body mass index [BMI] 40.0-44.9, adult Plan: Patient does understand her BMI is over 40 work on being more physically active and adapt to better eating habits to reduce her weight. She is interested in speaking with bariatric surgeons about gastric balloon device to help reduce weight. (4) Elevated TSH: Code(s): R79.89 - Other specified abnormal findings of blood chemistry Plan: Has a history of elevated TSH. Has a family history of hypothyroidism. Having trouble losing weight thus will recheck TSH to assure within normal range. (5) FRAGA (nonalcoholic steatohepatitis): Comment: BASELINE LABS 05/16/19 Ferritin 129 H [id number] 134 Ceruloplasmin 36 Anti-Smooth Muscle Ab <20 06/21/21 Hepatitis A IgM Ab Nonreactive Hep Bs Antigen Negative Hep Bs Antibody NONREACTIVE Hep B Core Total Ab Nonreactive Hepatitis C Ab (EIA) Nonreactive HIV 1&2 Ab/P24 Ag 4thGn Nonreactive Shear wave liver elastography median stiffness is 0.2 m/s (reference: normal median stiffness is 1.3 m/s or less). WBC 9.4 Hgb 13.4 Hct 40.5 MCV 90.6 Plt Count 383 Estimated GFR Direct Bilirubin 0.2 GGT 356 H Estimated GFR > 60 Hemoglobin A1c % 5.7 Total Bilirubin 0.6 AST 44 H ALT 105 H Alkaline Phosphatase 168 H TSH 3.39 CURRENT LABS; 09/30/22 433 H Estimated GFR Hgb A1c (Clinic) 5.7 Total Bilirubin Direct Bilirubin 0.2 Estimated GFR > 60 Hgb A1c (Clinic) Total Bilirubin 0.6 AST 45 H ALT 112 H Alkaline Phosphatase 170 H Alpha Fetoprotein 2.3 ULTRASOUND WITH elastography 07/2021 Shear wave liver elastography median stiffness is 0.2 m/s (reference: normal median stiffness is 1.3 m/s or less). US/US abdomen comp w elastography IMPRESSION: 1. Impression: Enlarged echogenic liver probably representing fatty infiltration. Mild splenomegaly. Question small right renal stone. Limited visualization of the tail the pancreas. ? 2. Liver elastography:? Slightly limited due to sampling error.? In the absence of other known clinical signs, rules out compensated advanced chronic liver disease. Code(s): K75.81 - Nonalcoholic steatohepatitis (FRAGA) Plan: Patient was followed by gastroenterology. Does have elevated liver enzymes and will be working on weight reduction as treatment. Orders: Orders Hemoglobin A1c Today R73.09 - Other abnormal glucose TSH reflex Free T4 Today R79.89 - Other specified abnormal findings of blood chemistry Comprehensive [place]. Panel Fast Today R73.09 - Other abnormal glucose TDaP Immunization Today Z23 - Encounter for immunization, Z87.01 - Personal history of pneumonia (recurrent) Referrals Bariatric Surgery Referral E66.01 - Morbid (severe) obesity due to excess calories, Z68.41 - Body mass index [BMI] 40.0-44.9, adult Coding Level of Care Code Est Pt Prev Care 18-39y([id number]) Diagnoses Annual physical exam Z00.00 Mild intermittent asthma without complication J45.20 Asthma complication type: uncomplicated Asthma persistence: intermittent Asthma severity: mild Class 3 severe obesity due to excess calories without serious comorbidity with body mass index (BMI) of 40.0 to 44.9 in adult E66.01; Z68.41 Body mass index: BMI 40.0-44.9 Obesity classification: adult class 3 (BMI >= 40) Obesity type: due to excess calories Serious obesity comorbidity presence: without serious comorbidity Elevated TSH R79.89 FRAGA (nonalcoholic steatohepatitis) K75.81 Additional Codes PAMELA-7 Assessment Billing - PAMELA-7 Assessment Tool: PAMELA-7 Assessment [id number] ([id number])
== END 2023-10-19 08:37 | disposition home or self-care (01) ==
PROVIDERS: PCP Physician Assistant; Visit Provider Physician Assistant
DX: Z00.00 Encounter for general adult medical examination without abnormal findings (principal); E66.01 Morbid (severe) obesity due to excess calories; Z68.41 Body mass index [BMI] 40.0-44.9, adult; Z23 Encounter for immunization; J45.20 Mild intermittent asthma, uncomplicated; R79.89 Other specified abnormal findings of blood chemistry; K75.81 Nonalcoholic steatohepatitis (NASH); Z87.01 Personal history of pneumonia (recurrent); F17.210 Nicotine dependence, cigarettes, uncomplicated
CPT/HCPCS: 90471; 90715; 99395

== ENCOUNTER 2023-10-19 08:43 | Outpatient (REF) | payer OTHER, SELFPAY ==
[2023-10-19 09:37] LABS: Estimated Average Glucose 114 mg/dL; Hemoglobin A1c % 5.6 % (<6.0)
[2023-10-19 09:59] LABS: Alanine Aminotransferase 67 U/L (0-31); Albumin Level 4.3 g/dL (3.5-5.0); Alkaline Phosphatase 135 U/L (39-117); Anion Gap 12 (12-20); Aspartate Amino Transferase 25 U/L (5-31); Bilirubin Total 0.5 mg/dL (0.0-1.0); Blood Urea Nitrogen 10 mg/dL (9-16); Calcium 9.5 mg/dL (8.4-10.2); Carbon Dioxide 23 mmol/L (22-29); Chloride 106 mmol/L (96-108); Estimated Glomerular Filt Rate > 60; Glucose Fasting 116 mg/dL (60-99); Sodium 137 mmol/L (135-145); Total Protein 7.7 g/dL (6.5-8.0)
[2023-10-19 10:17] LABS: TSH reflex Free T4 1.99 uIU/mL (0.32-4.0)
== END 2023-10-19 08:44 | disposition home or self-care (01) ==
LOC: HO.LAB 08:43
PROVIDERS: Visit Provider Physician Assistant
DX: R73.09 Other abnormal glucose (principal); R79.89 Other specified abnormal findings of blood chemistry
CPT/HCPCS: 36415; 80053; 83036; 84443

== ENCOUNTER → 2023-10-29 14:34 | Outpatient (BNVA) | payer OTHER, SELFPAY | PROVIDERS: PCP Physician Assistant; Visit Provider Physician Assistant Surgical ==

== ENCOUNTER 2023-11-11 14:46 | Outpatient (REF) | payer OTHER, SELFPAY ==
--- NOTE | ~2023-11-11 | XR_ITS ---
EXAMINATION: XR CHEST CLINICAL INFORMATION: Morbid severe obesity. COMPARISON: 08/04/2023. TECHNIQUE: 2 views of the chest were obtained. FINDINGS: There is no gross pneumothorax. Heart size is normal. No pleural effusion. No new focal consolidation to suggest pneumonia. Near complete resolution of previously identified very slight right basilar atelectasis. XR/XR chest 2V IMPRESSION: Near complete resolution of previously identified very slight right basilar atelectasis.
--- NOTE | 2023-11-11 15:47 | ECG_ITS ---
Test Reason : OBESITY Blood Pressure : / mmHG Vent. Rate : 072 BPM Atrial Rate : 072 BPM P-R Int : 166 ms QRS Dur : 098 ms QT Int : 384 ms P-R-T Axes : 022 034 031 degrees QTc Int : 420 ms Normal sinus rhythm Normal ECG No previous ECGs available Referred By: Nixon Cortes Electronically Signed By:SHIRIN LOUIS MD
[2023-11-11 16:04] LABS: MANUAL DIFF FLAG NO
[2023-11-11 17:27] LABS: Basophils Absolute Auto 0.1 X10*3/uL (0.0-0.2); Basophils Percent Auto 0.7 % (0-2); Eosinophils Absolute Auto 0.2 X10*3/uL (0.0-0.4); Eosinophils Percent Auto 2.8 % (0-4); Hematocrit 41.4 % (37.0-47.0); Hemoglobin 13.7 g/dl (12.0-16.0); Imm Gran Abs Auto 0.04 X10*3/uL (0.00-0.03); Imm Gran Pct Auto 0.5 % (0.0-0.4); Lymphocytes Absolute Auto 1.8 X10*3/uL (1.2-4.9); Lymphocytes Percent Auto 21.2 % (20-40); Mean Corpuscular HGB Conc 33.1 g/dl (31.0-35.0); Mean Corpuscular Volume 87.7 fL (80.0-98.0); Mean Platelet Volume 11.1 fL (9.4-12.3); Monocytes Absolute Auto 0.7 X10*3/uL (0.1-1.2); Monocytes Percent Auto 8.2 % (2-11); Neutrophils Absolute Auto 5.6 x10*3/uL (2.0-8.3); Neutrophils Percent Auto 66.6 % (45-73); Platelet Count 412 X10*3/uL (160-400); Red Blood Count 4.72 X10*6/uL (4.20-5.50); Red Cell Distribution Width 12.3 % (11.0-16.0); White Blood Count 8.3 X10*3/uL (4.8-10.8)
[2023-11-11 17:52] LABS: Estimated Average Glucose 111 mg/dL; Hemoglobin A1c % 5.5 % (<6.0)
[2023-11-11 18:09] LABS: C Reactive Protein 0.28 mg/dL (< or = 0.50); Cholesterol 162 mg/dL (<200); HDL Cholesterol 37 mg/dL (>40); Iron 68 mcg/dL (30-160); LDL Cholesterol Calculated 107 mg/dL (<100); Percent Iron Saturation 24 % (15-50); Total Iron Binding Capacity 288 mcg/dL (228-428); Triglycerides 91 mg/dL (<150); Unsaturated Iron Binding 220 ug/dL
[2023-11-11 18:29] LABS: Ferritin 129 ng/mL (10-122); Insulin 15 uU/mL (2-29); TSH reflex Free T4 2.27 uIU/mL (0.32-4.0); Vitamin D 25-OH Total 12.7 ng/mL (>30)
[2023-11-11 18:37] LABS: Folate 6.3 ng/mL (> or = 4.0); Vitamin B12 565 pg/mL (200-900)
[2023-11-14 04:13] LABS: Zinc 88 mcg/dL (60-130)
[2023-11-17 02:48] LABS: Vitamin A 35 mcg/dL (38-98)
[2023-11-18 15:32] LABS: Vitamin B1 <6 nmol/L (8-30)
== END 2023-11-11 14:47 | disposition home or self-care (01) ==
LOC: HO.LAB 14:46
PROVIDERS: PCP Physician Assistant; Visit Provider Physician Assistant Surgical
DX: E66.01 Morbid (severe) obesity due to excess calories (principal); K75.81 Nonalcoholic steatohepatitis (NASH); R74.8 Abnormal levels of other serum enzymes; R06.83 Snoring
CPT/HCPCS: 71046; 80061; 82306; 82607; 82728; 82746; 83036; 83525; 83540; 84425; 84443; 84590; 84630; 85025; 86140; 93005; 99202

== ENCOUNTER 2023-11-11 14:46 | Outpatient (AMB) | payer OTHER, SELFPAY ==
--- NOTE | 2023-11-11 14:47 | A.OFFVIS_ITS ---
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 MWL BMI 45.3 Database Support Required: No Allergies bee venom protein (honey bee) Allergy (Unknown, Verified 10/19/23 08:12) bee sting- localized swelling cefazolin [From ANCEF] Allergy (Unknown, Verified 10/19/23 08:12) SWELLING Cefazolin Sodium Allergy (Unknown, Verified 10/19/23 08:12) Swelling Medication List - Last Reconciled 11/11/23 by ARIANNA Rodríguez albuterol sulfate 90 mcg/actuation (ProAir HFA) 1 puff inhalation QID 30 days famotidine (Pepcid) 20 mg PO DAILY HPI HPI Comments History of Present Illness Details Pt is here to start the [facility] Weight Management surgical weight loss program. She heard about our program from her PCP. Her goal is to lose weight and achieve a healthy lifestyle as well as to improve, if not resolve, obesity related medical conditions, including possible BERTA. She reports first being concerned about her weight about 8 years ago, highest weight to date was 300. Her weight upon first presentation to the [facility] on 10/29/23 was 272.6 pounds with a BMI of 45.3. Current weight is 267.6 pounds with a BMI of 44.5. She has intentionally tried to lose weight, decreasing fast food and trying to eat better. She has tried multiple methods of weight loss including fad diets without permanent results. She lives with her mom. 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 She wakes at:?6 am, and goes to bed at?9 pm. Dinner is at 5 pm. Breakfast: skip AM snack: skip Lunch: fast food PM snack: skip Dinner: fast food or rice and beans and meat, vegetables After dinner: cereal (fruity kaley w whole milk) cookies Other snacks: ice cream, chips, cake Liquids: 64 oz water daily, no soda (quit 2 months - prev 1 liter coke daily), no juice Alcohol/marijuana/tobacco intake: none, quit tobacco 2 years ago Exercise: none, could join a gym GERD score: 0 DAXA score: 4 ESS score: 12 QOL score: 120 PFSH Medical History Physical exam Right upper quadrant abdominal pain Surgical History History of esophagogastroduodenoscopy (EGD) History of removal of cyst History of cholecystectomy Family History Father Medical history unknown Mother Diabetes Hypertension Mental health disorder Fibromyalgia Hypothyroid Social History Housing: House Alcohol intake: never Patient Tobacco Use Status: Former Tobacco user Quit Date: 03/04/2022 Tobacco use type: Cigarette e-Cigarette/Vaping Use: Never Used Second Hand Smoke Exposure: No service: No Current occupational status: employed Current occupation: [employer]. Current occupational exposures/hazards: No Cognitive needs: No Hearing needs: No Vision needs: Yes Review of Systems Const All systems reviewed & are unremarkable except as noted in HPI and below Physical Exam Const General: cooperative, healthy appearing and no acute distress Orientation/consciousness: patient oriented x3 HEENT Head: Yes normal to inspection Ears: hearing grossly normal bilaterally General nose exam: Normal external nose present Face and sinus: Yes normal facial exam Eyes General: appearance normal, both eyes and all related structures Resp Effort & Inspection: normal respiratory effort Auscultation: clear to auscultation bilaterally Cardio Rate: regular rate Rhythm: regular rhythm Heart sounds: S1 normal heart sound present and S2 normal heart sound present GI Inspection: Yes normal to inspection, No distended and Yes obesity Palpation (GI): Soft to palpation, nontender and no guarding Auscultation: normal bowel sounds Skin General skin exam: no rashes or lesions noted Neuro General: patient oriented x3 Extrem General: No edema Psych Appearance: grossly normal Mental Status: mental status grossly normal Speech and movement: Normal speech and movement present Affect: normal affect Attitude: cooperative Assessment & Plan Assessment & Plan (1) Morbid obesity: Code(s): E66.01 - Morbid (severe) obesity due to excess calories Plan: This is a?33 yo female who will start our SWL program to prepare for bariatric surgery.? Blood work, h pylori , CXR, ECG, Abd US and UGI have been ordered. She is being scheduled for RD and BH initial consultations. She will start SWL classes and watch the first three videos before her next appointment. ? Adequate sleep of 7-8 hours per night discussed, awakening at 6 am and going to bed at 9 pm ? Purchase body composition analyzer scale (Renpho recommended) and check weight weekly. The best time to do this is first thing in the morning after going to the bathroom. 1. Nutritional counseling: Be sure to careful read the number of scoops per shake Start with 1 Celebrate Rebuild shake ([facility] [employer], [employer], [employer]), (2 scoops in 12 oz unsweetened almond milk) at 7am-9am 2 and 1/2 protein bars (Celebrate bars at [facility] [employer], [employer], [employer]) First bar at 10am-12pm. Second bar at 2pm-4pm Dinner at 5-6pm (10 forks of protein and 10 forks of salad/vegetables). Meal to include lean meat (beef, fish, pork, turkey, chicken), cooked vegetables or a salad with olive oil and/or fruits (berries, pears, apples, kiwi). Avoid salt, breads, potatoes, rice, pasta, desserts. Another 1/2 bar at 730pm-830pm. Try to drink 64 oz of water daily and avoid soda and juices. ?2. Each shake would be drunk slowly, like coffee in a period of 2 hours. ?3. Cut each bar in 4 pieces and eat each piece in 30 min ?to make each bar last 2 hours. ?4. I emphasized the importance of measuring accurately the food portion and measure it carefully when serving the food on the plate ?5. The meal portions include 10 full-size forks of meat and 10 full-size forks of salad. You always eat the meat portion but you can replace up to half of the forks of salad/vegetables with rice, potatoes or pasta, or a fruit ?if you like. The less you do it the better weight loss will be. ?6. One full-size fork is what can be scooped on the fork without falling aside and not what can be bit with the fork. Use regular forks like those you find in a typical restaurant. ?7.? Please send me weight measurements as soon as possible and then once a week. Always include your diet and exercise plan. Alternatively come weekly at the office for weight checks and send me the measurements. ?8. Exercise counseling: Begin by watching a stretching for beginners video. Start slowly and begin to stretch your muscles. You should do this before and after each exercise session to prevent injury. Please join [facility] gym near your home. Ask the aviation project manager or one of the trainers how to use the machines if you are unfamiliar with them. Start elliptical with a resistance of 2. Increase res istance by 1 every 3 min to your most comfortable resistance with a max resistance of 8. Reduce the resistance by 1 every 3 minutes back down to 2 and repeat cycles for 300 calories. Alternatively, start treadmill with a speed of 3.0 and incline of 0, increasing incline by 1 every 3 minutes to the highest comfortable level (max 6 for now) then decrease in the same fashion. Repeat process to a goal of 300 calories. Goal of 2000 calories burned or more weekly. You may also consider use of the stationary bike. The easiest would be to chose the fat-burn or interval training program on the machine and do this until you reach the 300 calorie goal. Alternatively, you can manually adjust the resistance in a similar fashion as mentioned above, (resistance of 2-8 with a goal speed of 12 mph). Tracking calories is essential. 9. Alternatively start walking outside daily, tracking calories with a goal of 300 calories per day, daily. You can download the pankaj Pay-Me which can track your time, distance and calories while walking outside. You press start in the pankaj when you start and then stop when you are finished. 10.? It is important to avoid for at least 18 months postoperatively and it has been discussed at the information session 11. Please get labs, EKG and chest X-Ray within 1 week. 12. Discussed and answered all questions regarding?obtained consent to participate in the [facility]?Registry. 13. Please follow the diet plan exactly, without any change. If you do not like something about the plan or you feel hungry, you need to communicate with me so I can help you revise the plan. You should not change the plan yourself. Text me at [phone] 14. Goal is to lose at least 10-12 pounds in the first month 15. Goal is to lose 10% of your weight before surgery, which is about 26 lbs. Ultimate weight goal: 241 lbs before surgery Patient is morbidly obese and is not considered stable at this time.?I spent a total of 70 minutes reviewing/updating records, examining the patient and counseling the patient on weight management as detailed above. Orders: Orders RT home sleep study Today E66.01 - Morbid (severe) obesity due to excess calories, K75.81 - Nonalcoholic steatohepatitis (FRAGA), R06.83 - Snoring, R74.8 - Abnormal levels of other serum enzymes IRON PROFILE Today E66.01 - Morbid (severe) obesity due to excess calories, K75.81 - Nonalcoholic steatohepatitis (FRAGA), R06.83 - Snoring, R74.8 - Abnormal levels of other serum enzymes Vitamin A Today E66.01 - Morbid (severe) obesity due to excess calories, K75.81 - Nonalcoholic steatohepatitis (FRAGA), R06.83 - Snoring, R74.8 - Abnormal levels of other serum enzymes FL upper GI w air Today E66.01 - Morbid (severe) obesity due to excess calories, K75.81 - Nonalcoholic steatohepatitis (FRAGA), R06.83 - Snoring, R74.8 - Abnormal levels of other serum enzymes Insulin Today E66.01 - Morbid (severe) obesity due to excess calories, K75.81 - Nonalcoholic steatohepatitis (FRAGA), R06.83 - Snoring, R74.8 - Abnormal levels of other serum enzymes Hemoglobin A1c Today E66.01 - Morbid (severe) obesity due to excess calories, K75.81 - Nonalcoholic steatohepatitis (FRAGA), R06.83 - Snoring, R74.8 - Abnormal levels of other serum enzymes H Pylori Breath Test Today E66.01 - Morbid (severe) obesity due to excess calories, K75.81 - Nonalcoholic steatohepatitis (FRAGA), R06.83 - Snoring, R74.8 - Abnormal levels of other serum enzymes Complete Blood Count Auto Diff Today E66.01 - Morbid (severe) obesity due to excess calories, K75.81 - Nonalcoholic steatohepatitis (FRAGA), R06.83 - Snoring, R74.8 - Abnormal levels of other serum enzymes Lipid Panel Today E66.01 - Morbid (severe) obesity due to excess calories, K75.81 - Nonalcoholic steatohepatitis (FRAGA), R06.83 - Snoring, R74.8 - Abnormal levels of other serum enzymes Vitamin B12 and Folate Today E66.01 - Morbid (severe) obesity due to excess calories, K75.81 - Nonalcoholic steatohepatitis (FRAGA), R06.83 - Snoring, R74.8 - Abnormal levels of other serum enzymes Zinc Today E66.01 - Morbid (severe) obesity due to excess calories, K75.81 - Nonalcoholic steatohepatitis (FRAGA), R06.83 - Snoring, R74.8 - Abnormal levels of other serum enzymes C Reactive Protein Today E66.01 - Morbid (severe) obesity due to excess calories, K75.81 - Nonalcoholic steatohepatitis (FRAGA), R06.83 - Snoring, R74.8 - Abnormal levels of other serum enzymes Vitamin B1 Today E66.01 - Morbid (severe) obesity due to excess calories, K75.81 - Nonalcoholic steatohepatitis (FRAGA), R06.83 - Snoring, R74.8 - Abnormal levels of other serum enzymes TSH reflex Free T4 Today E66.01 - Morbid (severe) obesity due to excess calories, K75.81 - Nonalcoholic steatohepatitis (FRAGA), R06.83 - Snoring, R74.8 - Abnormal levels of other serum enzymes Ferritin Today E66.01 - Morbid (severe) obesity due to excess calories, K75.81 - Nonalcoholic steatohepatitis (FRAGA), R06.83 - Snoring, R74.8 - Abnormal levels of other serum enzymes Vitamin D 25-OH Total Today E66.01 - Morbid (severe) obesity due to excess calories, K75.81 - Nonalcoholic steatohepatitis (FRAGA), R06.83 - Snoring, R74.8 - Abnormal levels of other serum enzymes US abdomen comp w elastography Today E66.01 - Morbid (severe) obesity due to excess calories, K75.81 - Nonalcoholic steatohepatitis (FRAGA), R06.83 - Snoring, R74.8 - Abnormal levels of other serum enzymes XR chest 2V Today E66.01 - Morbid (severe) obesity due to excess calories, K75.81 - Nonalcoholic steatohepatitis (FRAGA), R06.83 - Snoring, R74.8 - Abnormal levels of other serum enzymes ECG 12 lead EKG Today E66.01 - Morbid (severe) obesity due to excess calories, K75.81 - Nonalcoholic steatohepatitis (FRAGA), R06.83 - Snoring, R74.8 - Abnormal levels of other serum enzymes Referrals Nutrition/Dietitian Referral E66.01 - Morbid (severe) obesity due to excess calories, K75.81 - Nonalcoholic steatohepatitis (FRAGA), R06.83 - Snoring, R74.8 - Abnormal levels of other serum enzymes Behavioral Health Referral E66.01 - Morbid (severe) obesity due to excess calories, K75.81 - Nonalcoholic steatohepatitis (FRAGA), R06.83 - Snoring, R74.8 - Abnormal levels of other serum enzymes Coding Level of Care Code New Pt Level 5 (57341) Diagnoses Morbid obesity E66.01 Time Spent (min) 70
[2023-11-11 14:53] VITALS: BP 109/72; PULSE 92; TEMP 36; O2SAT 98; BMI 44.5
== END 2023-11-11 16:10 | disposition home or self-care (01) ==
PROVIDERS: PCP Physician Assistant; Visit Provider Physician Assistant Surgical
DX: E66.01 Morbid (severe) obesity due to excess calories (principal); Z68.41 Body mass index [BMI] 40.0-44.9, adult
CPT/HCPCS: 99205

== ENCOUNTER → 2023-11-11 15:47 | Outpatient (BNV) | payer OTHER, SELFPAY | PROVIDERS: PCP Physician Assistant; Visit Provider Internal Medicine Cardiovascular Disease | DX: R06.83 Snoring (principal); E66.01 Morbid (severe) obesity due to excess calories | CPT/HCPCS: 93010 ==

== ENCOUNTER 2023-11-24 14:00 | Outpatient (AMB) | payer OTHER, SELFPAY ==
--- NOTE | 2023-11-24 14:43 | A.OFFVIS_ITS ---
Intake VS Expanded 11/24/23 14:46 Height 5 ft 5 in Weight 262 lb BMI 43.6 Intake Visit Reasons: (OV) Initial Nutrition [facility] Door To Door Lead Generation Required: No Allergies bee venom protein (honey bee) Allergy (Unknown, Verified 10/19/23 08:12) bee sting- localized swelling cefazolin [From ANCEF] Allergy (Unknown, Verified 10/19/23 08:12) SWELLING Cefazolin Sodium Allergy (Unknown, Verified 10/19/23 08:12) Swelling HPI Nutrition Presentation Details SWL , but pt reports she isn't sure if she wants bariatric surgery Reason for consult elevated BMI Diet Assmnt Details Pt reports she hasn't been able to be consistent with her nutrition plan yet. 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 Always drinks her shake in the morning 10am bar 12pm yogurt or food 2pm bar - but sometimes misses this 5-6pm dinner - steak mostly - sirloin , tries to choose very lean cuts and understands how to look for fat ; also asparagus and green beans. uses unsalted butter and salt . She states she tries to stay away from any seasonings. When asked why, she states when food tastes good, she cant stop eating it. We discussed that this may not be the healthiest thought process. She doesn't have a therapist, she has in the past. she will be seeing Juliette next week as part of [facility] prep [facility] online classes: completed, and reviewed today. Dietary counseling reduction Who buys your food self Who prepares/cooks your food self Lifestyle Eating out 4 or more times/week Diagnosis Nutrition problem #1 overweight/obesity As related to (etiology) #1 excess energy intake and physical inactivity As evidenced by (sign/symptom) #1 high BMI Monitoring/Goals Nutrition problem monitoring total energy intake, level of knowledge/skill, total PRO intake, total CHO intake and weight Outcome progress progressing Learning/Education Readiness to learn good Stages of change action Educational materials provided Yes Most Recent Diabetes Results: Cholesterol 162 mg/dL (<200) 11/11/23 HDL Cholesterol 37 mg/dL (>40) L 11/11/23 Triglycerides 91 mg/dL (<150) 11/11/23 Creatinine 0.75 mg/dL (0.5-1.4) 02/19/24 Blood Urea Nitrogen 10 mg/dL (9-16) 10/19/23 Sodium 137 mmol/L (135-145) 10/19/23 Potassium 4.0 mmol/L (3.3-5.1) 10/19/23 Chloride 106 mmol/L (96-108) 10/19/23 Carbon Dioxide 23 mmol/L (22-29) 10/19/23 Calcium 9.5 mg/dL (8.4-10.2) 10/19/23 AST 25 U/L (5-31) 10/19/23 ALT 67 U/L (0-31) H 10/19/23 Total Protein 7.7 g/dL (6.5-8.0) 10/19/23 Albumin 4.3 g/dL (3.5-5.0) 10/19/23 [facility] Medical History Physical exam Right upper quadrant abdominal pain Surgical History History of esophagogastroduodenoscopy (EGD) History of removal of cyst History of cholecystectomy Family History Father Medical history unknown Mother Diabetes Hypertension Mental health disorder Fibromyalgia Hypothyroid Social History Housing: House Alcohol intake: never Patient Tobacco Use Status: Former Tobacco user Quit Date: 03/04/2022 Tobacco use type: Cigarette e-Cigarette/Vaping Use: Never Used Second Hand Smoke Exposure: No service: No Current occupational status: employed Current occupation: [employer]. Current occupational exposures/hazards: No Cognitive needs: No Hearing needs: No Vision needs: Yes Assessment & Plan Assessment & Plan (1) Morbid obesity: Code(s): E66.01 - Morbid (severe) obesity due to excess calories Plan Pt will be seen again. Will need to see Juliette for BH assessment. Pt seems to need more time to decide if she wants to pursue surgery or not. Coding Level of Care Code Nutr Indiv Intake (40938) Diagnoses Morbid obesity E66.01 Time Spent (min) 30
[2023-11-24 14:46] VITALS: BMI 43.6
== END 2023-11-24 15:08 | disposition home or self-care (01) ==
PROVIDERS: PCP Physician Assistant; Visit Provider Dietitian, Registered
DX: E66.01 Morbid (severe) obesity due to excess calories (principal)

== ENCOUNTER → 2023-11-24 14:00 | Outpatient (BNVA) | payer OTHER, SELFPAY | PROVIDERS: PCP Physician Assistant; Visit Provider Dietitian, Registered | DX: E66.01 Morbid (severe) obesity due to excess calories (principal); Z68.41 Body mass index [BMI] 40.0-44.9, adult | CPT/HCPCS: 97802 ==

== ENCOUNTER 2023-12-02 12:00 | Outpatient (AMB) | payer OTHER, SELFPAY ==
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
== END 2023-12-02 13:00 | disposition home or self-care (01) ==
LOC: HO.HBST 13:29
PROVIDERS: PCP Physician Assistant; Visit Provider Counselor Mental Health
DX: F41.9 Anxiety disorder, unspecified (principal); Z87.828 Personal history of other (healed) physical injury and trauma; Z86.59 Personal history of other mental and behavioral disorders
CPT/HCPCS: 90791

== ENCOUNTER → 2023-12-02 12:00 | Outpatient (BNVA) | payer OTHER, SELFPAY | PROVIDERS: PCP Physician Assistant; Visit Provider Counselor Mental Health ==

== ENCOUNTER 2024-08-17 15:31 | Outpatient (REF) | payer OTHER, SELFPAY ==
[2024-08-17 18:35] LABS: CT PCR NOT DETECTED (Not Detect.); NG PCR NOT DETECTED (Not Detect.)
[2024-08-18 03:48] LABS: Syphilis Screen Nonreactive (Nonreactive)
[2024-08-18 04:44] LABS: HIV AB/AG Nonreactive (Nonreactive); HIV Num 1 0.06 S/CO (0.00-0.99)
== END 2024-08-17 15:32 | disposition home or self-care (01) ==
LOC: HO.LAB 15:31
PROVIDERS: PCP Physician Assistant; Visit Provider Physician Assistant
DX: Z20.2 Contact with and (suspected) exposure to infections with a predominantly sexual mode of transmission (principal); Z11.3 Encounter for screening for infections with a predominantly sexual mode of transmission
CPT/HCPCS: 86780; 87389; 87491; 87591

== ENCOUNTER 2024-10-20 08:23 | Outpatient (AMB) | payer OTHER, SELFPAY ==
--- OUTSIDE RECORDS SUMMARY | 2024-10-20 08:47 | XMS_ITS | Clinical Summary ---
Author Organization [facility] Address [address] [place] [address] Care Team Providers Care Window Dresser Name Role Phone Unavailable Primary Care Provider Unavailabl e Source Comments PLEASE NOTE, if this patient is a minor, it may be UNLAWFUL to discuss sensitive information that is contained in these records (such as FAMILY PLANNING, MENTAL HEALTH or SUBSTANCE ABUSE) with the minor patient's parent or other person without the patient's specific authorization.[facility] Medications No known medications Active Problems No known active problems Social History Tobacco Use Types Packs/Day Years Used Date Smoking Tobacco: Never Smokeless Tobacco: Never Tobacco Cessation:Counseling Given: Not Answered Social Connections Answer Date Recorded Connectedness 0 05/23/2024 Financial Resource Strain Answer Date R ecorded Financial Resource Strain 0 2023 Stress Answer Date Recorded Stress 0 04/22/2024 Physical Activity Answer Date Recorded Physical Activity 0 04/22/2024 Food Insecurity Answer Date Recorded Food 0 05/26/2024 Transportation Needs Answer Date Record ed Transportation 0 04/22/2024 Housing Stability Answer Date Recorded Housing 0 04/22/2024 Safety and Environment Answer Date Eric rded Safety 0 04/22/2024 Utilities Answer Date Recorded Utilities 0 04/22/2024 Employment Answer Date Recorded Stress 0 05/23/2024 Comments Unknown Sex and Gender Information Value Date Recorded Sex Assigned at Not on file Legal Sex Female 8:06 AM PDT Gender Identity Not on file Sexual Orientation Not on file Last Filed Vital Signs Vital Sign Reading Time Taken Comments Blood Pressure 149/86 05/23/2024 10:26 AM EDT Pulse 85 05/23/2024 10:26 AM EDT Temperature - - Respiratory Rate - - Oxygen Saturation - - Inhaled Oxygen Concentration - - Weight - - Height - - Body Mass Index - - Plan of Treatment Health Maintenance Due Date Last Done Comments Diabetes Screening 1989 HPV Screening 1989 Hepatitis C Screening 1989 Pap + HPV 1989 HIV Screening 2004 Relationship Safety Screening/Counseling 2004 Annual Preventive Care Visit 2007 Imm-DTaP/Tdap/Td (1 - Tdap) 2008 Imm-Hepatitis B (1 of 3 - 19+ 3-dose series) 8 Cervical Cancer Screening 2010 Pap Smear 2010 [id number] ( season) 2024 Imm-Influenza (#1) 2024 Alcohol and Drug Screen 08/31/2024 Depression Annual Screen 08/31/2024 Tobacco Screening 04/25/2025 04/25/2024 Hypertension Screening (#1) 05/23/2025 Cervical Ablation/Cold-Knife Conization Discontinued Cervical Cryotherapy Discontinued Colposcopy Discontinued Endometrial Biopsy Discontinued Excision/Leep Discontinued HPV Genotyping Discontinued Vaginal Pap Discontinued Vulvoscopy Discontinued Insurance HE[employer] SAF[employer]Y NET DENTAL
--- OUTSIDE RECORDS SUMMARY | 2024-10-20 08:47 | XMS_ITS | Clinical Summary ---
Author Organization [facility] Address [address] [place] [address] Care Team Providers Care Director Quality Systems Name Role Phone Unavailable Primary Care Provider Unavailabl e Allergies Active Allergy Reactions Criticality Noted Date Comments Cefazolin High 06/26/2022 Medications No known medications Social History Tobacco Use Types Packs/Day Years Used Date Smoking Tobacco: Never Assessed Sex and Gender Information Value Date Recorded Sex Assigned at Not on file Gender Identity Not on file Sexual Orientation Not on file Job Start Date Occupation Industry Not on file Not on file Not on file Plan of Treatment Health Maintenance Due Date Last Done Comments Hepatitis B Vaccines (1 of 3 - 3-dose series) 1989 Hepatitis C Screening 1989 COVID-19 Vaccine (#1) 1989 Depression Screening 2001 Preventative Health Evaluation 2007 DTap / Tdap / Td (1 - Tdap) 2008 Cervical Cancer Screening (P ap Smear) 2010 Influenza Vaccine (#1) 2024 Pneumococcal Vaccine Aged Out No long er eligible based on patient's age to complete this topic RSV Ped < 20 months Aged Out No longe r eligible based on patient's age to complete this topic
--- NOTE | 2024-10-20 08:51 | MHC.PC.OV ---
Vital Signs 10/20/24 08:55 Height 5 ft 5 in Weight 229 lb 6 oz BMI 38.2 BP 134/86 Blood Pressure Location Lt brachial Position Sitting Pulse 70 Pulse Source Pulse Oximeter Temp 97.1 F Temp Source Temporal Artery Scan Pulse Oximetry (%) 95 Intake Visit Reasons: Annual Exam Intake Note: Patient is here today for a physical. 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: No Accompanied by: Self / Same As Patient Allergies bee venom protein (honey bee) Allergy (Unknown, Verified 10/20/24 09:26) bee sting- localized swelling cefazolin [From ANCEF] Allergy (Unknown, Verified 10/20/24 09:26) SWELLING Cefazolin Sodium Allergy (Unknown, Verified 10/20/24 09:26) Swelling Medication List - Last Reconciled 10/20/24 by Eulogio Sanon PA-C albuterol sulfate 90 mcg/actuation (ProAir HFA) 1 puff inhalation QID 30 days cholecalciferol (vitamin D3) 125 mcg PO DAILY 90 days famotidine (Pepcid) 20 mg PO DAILY thiamine HCl (vitamin B1) 100 mg PO DAILY 90 days vitamin A palmitate 3,000 mcg PO DAILY 90 days Tobacco use date assessed: 10/20/24 Dental Screening Dental Screen Date: 10/20/24 Did you have a dental visit in the last 12 months?: Yes Did you have a dental problem in the last 6 months where you did not have access to dental care?: No Was dental information given to patient?: Patient has dentist HPI Annual Exam HPI Details Patient is a 34-year-old female here today for for annual physical.? Patient has a past history significant for obesity, elevated liver enzymes. Concerns--> has developed a rash over her nose in lips. She does admit to positive contact in the home. She has been using hydrocortisone with only minimal relief her rash. Elevated liver enzyme:?? Patient is now followed by gastroenterology, She did have an ultrasound of her abdomen October 2020 showing-- >?There is diffusely increased, coarsened hepatic echogenicity and sound attenuation, consistent with diffuse hepatic steatosis. She has started a ketogenic diet in his lost significant amount of weight. Will recheck her liver enzymes .? Former smoker:? Quit smoking in 2021. .. Class 2 Obesity: Patient does understand her BMI is over 30 and will work on being more physically active and adapt to better eating habits to reduce her weight .. .. Asthma: Reports her asthma has been well controlled.? Has been better since she quit smoking as well. She reports only using her albuterol inhaler infrequently. 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 Vaccines: : Up-to-date with pneumonia vaccine, declines flu vaccine, UTD Tdap [facility] Medical History Physical exam Right upper quadrant abdominal pain Surgical History History of esophagogastroduodenoscopy (EGD) History of removal of cyst History of cholecystectomy Family History Father Medical history unknown Mother Diabetes Hypertension Mental health disorder Fibromyalgia Hypothyroid Social History (Updated 10/20/24 @ 09:29 by Eulogio Sanon PA-C) Housing: House Alcohol intake: never Patient Tobacco Use Status: Former Tobacco user Tobacco use type: Cigarette e-Cigarette/Vaping Use: Never Used Second Hand Smoke Exposure: No service: No Current occupational status: employed Current occupation: [employer]. Current occupational exposures/hazards: No Cognitive needs: No Hearing needs: No Vision needs: Yes Questionnaire PHQ-9 Over the last 2 weeks, how often have you been bothered by any of the following problems? 1. Little interest or pleasure in doing things: not at all 2. Feeling down, depressed, or hopeless: not at all 3. Trouble falling or staying asleep, or sleeping too much: not at all 4. Feeling tired or having little energy: not at all 5. Poor appetite or overeating: not at all 6. Feeling bad about yourself - or that you are a failure or have let yourself or your family down: not at all 7. Trouble concentrating on things, such as reading the newspaper or watching television: not at all 8. Moving or speaking so slowly that other people could have noticed. Or the opposite - being so fidgety or restless that you have been moving around a lot more than usual: not at all 9. Thoughts that you would be better off or of hurting yourself in some way: not at all Total score: 0 Depression Screening Interpretation: Negative Depression Screening Done: Yes 46438 - PHQ-9 Billing: Yes Source: Developed by Drs. Stef Nation, Ada Cleary, Pan Mclean and colleagues, with an educational donna from [employer]. Thrive Questionnaire Date Thrive assessed: 10/20/24 I am a: Patient What is your living situation today?: I have a steady place to live Within the past 12 months, did the food you bought not last and you didn't have the money to get more?: Never true Within the past 12 months, did you worry whether your food would run out before you got money to buy more?: Never true Do you have trouble paying for medicines?: No Do you have trouble getting transportation to medical appointments?: No Do you have trouble paying your heating and electricity bill?: No Do you have trouble taking care of your child, family member or friend?: No Do you have trouble with day-to-day activities such as bathing, preparing meals, shopping, managing finances, etc.?: No Are you currently unemployed and looking for a job?: No Are you interested in more education?: No Please select the resources that you would like help with: None Currently or been in a relationship where the following occur: No concerns reported THRIVE Score: 0 AUDIT C Alcohol Use Questionnaire (AUDIT-C) 1. How often do you have a drink containing alcohol?: Never 3. How often do you have six or more drinks on one occasion?: Never Total Score: 0 PAMELA-7 AMB Questionnaire PAMELA-7 Date PAMELA - 7 assessed: 10/20/24 Feeling nervous, anxious, or on edge: 0 = Not at all Not being able to stop or control worryin = Not at all Worrying too much about different things: 0 = Not at all Trouble relaxin = Not at all Being so restless that it is hard to sit still: 0 = Not at all Becoming easily annoyed or irritable: 0 = Not at all Feeling afraid as if something awful might happen: 0 = Not at all Total PAMELA-7 score (0-4 normal; 5-9 mild; 10-14 moderate; 15-21 severe): 0 Source: Developed by Ada Skelton B.W. Evin, Pan Mclean and colleagues, with an educational donna from [employer]. PAMELA-7 Assessment Billing PAMELA-7 Assessment Tool: PAMELA-7 Assessment 48993 Review of Systems Const Denies body aches, Denies chills, Denies excessive sweating, Denies fatigue, Denies fever(s) and Denies headache(s) Eyes Denies blurry vision ENT Denies dysphagia, Denies vertigo, Denies dizziness, Denies headache(s), Denies hearing loss and Denies tinnitus Card Denies chest pain, Denies chest pain with activity, Denies syncope, Denies irregular heart rhythm and Denies dyspnea Resp Denies chest congestion, Denies cough, Denies hemoptysis, Denies dyspnea and Denies wheezing GI Denies abdominal pain, Denies melena, Denies hematochezia, Denies coffee ground emesis, Denies dysphagia, Denies diarrhea, Denies nausea and Denies vomiting Denies urinary frequency, Denies dysuria, Denies urinary hesitancy and Denies urinary urgency Musc Denies arthralgias, Denies limited range of motion, Denies muscle cramps and Denies muscle weakness Skin/Breast Denies rash and Denies skin ulcer Neuro Denies Abnormal speech present, Denies confusion, Denies vertigo, Denies dizziness, Denies syncope, Denies headache(s), Denies memory loss and Denies seizure-like activity Psych Denies anxiety, Denies confusion, Denies depression, Denies memory loss, Denies panic attacks and Denies paranoia Endo Denies excessive sweating, Denies fatigue, Denies flushing, Denies polydipsia and Denies polyuria Aller/Immun Denies wheezing Physical exam (Primary Care) Vital Signs: Last Vital Signs Temp 97.1 F 10/20/24 08:55 Pulse 70 10/20/24 08:55 BP 134/86 10/20/24 08:55 Pulse Ox 95 10/20/24 08:55 BMI result Body Mass Index 38.2 BMI Assessment/Plan discussion: High BMI High, discussed plan: lifestyle, weight reduction, dietary and physical activity Tobacco/Smoking Status: Tobacco use Status Tobacco use date assessed 10/20/24 10/20/24 08:52 Patient Tobacco Use Status Former Tobacco user 02/20/25 09:29 Tobacco use type Cigarette 10/20/24 09:29 e-Cigarette/Vaping Use Never Used 10/20/24 09:29 PHQ-9: PHQ-9 Score PHQ-9: Total score 0 10/20/24 09:28 Depression Screening Interpretation: Negative Thrive Assessment: Date of Thrive Assessment Date Thrive assessed 10/20/24 10/20/24 08:52 Currently or been in a relationship where the following occur: No concerns reported Const General: cooperative, comfortable, no acute distress, alert and awake; No confusion Orientation/consciousness: oriented to person, oriented to place, patient oriented x3 and No confusion HENMT Head: Yes normocephalic Head images: 1. ERYTHEMATOUS INFECTIOUS RASH OVER NOSTRILS AND UPPER LIP. Ears: external ears normal and TM's normal bilaterally Face and sinus: No sinus tenderness Mouth: Normal oral and palatal mucosa present and tongue normal Teeth and gingiva: dentition normal and gingiva normal Throat: Yes posterior oropharynx normal, Yes tonsils normal and Yes uvula midline Eyes Conjunctivae: conjunctivae normal Sclerae: sclerae normal Pupils: Equal, round and reactive pupils present EOM: EOMs intact bilaterally Direct Ophthalmoscopy: No no photophobia Neck Neck: Yes no lymphadenopathy, No tender and Yes no JVD Thyroid: Thyroid normal Carotids: no bruits Chest Chest palpation & inspection: no tenderness Resp Effort & Inspection: normal respiratory effort, no audible wheezes, not labored and no stridor Auscultation: no crackles, no rales, no rhonchi and no wheezes Cardio Jugular venous distension: no JVD Rate: regular rate, not bradycardic and not tachycardic Rhythm: regular rhythm Bruits: no carotid bruits Peripheral pulses: Peripheral pulses 2+ throughout GI Inspection: Yes normal to inspection, No abdominal wall ecchymosis and No visible herniation Palpation (GI): Soft to palpation, nontender, no guarding, not rigid and No hepatosplenomegaly present Auscultation: normoactive bowel sounds General: Yes no CVA tenderness Back/Spine/Pelvis Back: no CVA tenderness and No back tenderness Cervical Spine: cervical ROM normal Thoracic/Lumbar Spine: thoracic and lumbar spine normal to inspection, straight leg raise negative bilaterally, No thoraco-lumbar ROM limited and No lumbar spinal tenderness Skin Lesions: no lesions Rashes: no rashes Wounds: no wounds Neuro General: oriented to person, oriented to place, patient oriented x3, CN's II-XI intact bilaterally and No confusion Cranial nerves: Yes Equal, round and reactive pupils present and Yes Normal accommodation reflex present Cognition (Neuro): normal cognition Speech: No Abnormal speech present Gait exam (Neuro): Normal gait present Motor exam (neuro): 5/5 motor strength present throughout Extrem Right upper extremity: full ROM; no cyanosis Left upper extremity: full ROM; no cyanosis Right lower extremity: no edema Left lower extremity: no edema Psych Appearance: grossly normal Mental Status: mental status grossly normal Affect: normal affect Attitude: cooperative Thought process: Normal thought process present Coding Level of Care Code Est Pt Prev Care 18-39y(03652) Diagnoses Annual physical exam Z00.00 Class 2 obesity E66.812 Impetigo L01.00 Cervical cancer screening Z12.4 FRAGA (nonalcoholic steatohepatitis) K75.81 Additional Codes PAMELA-7 Assessment Billing - PAMELA-7 Assessment Tool: PAMELA-7 Assessment 77612 ([id number]) PHQ-9 - 82265 - PHQ-9 Billing: Yes ([id number]) Assessment & Plan Assessment & Plan (1) Annual physical exam: Code(s): Z00.00 - Encounter for general adult medical examination without abnormal findings Category: Medical Plan: As per HPI (2) Class 2 obesity: Code(s): E66.812 - Obesity, class 2 Category: Medical Plan: Patient has been following a ketogenic diet and has lost significant amount of weight. (3) Impetigo: Code(s): L01.00 - Impetigo, unspecified Category: Medical Plan: Patient's signs and presentation most consistent with a impetigo infection. Will supply patient with topical antibiotic (4) Cervical cancer screening: Code(s): Z12.4 - Encounter for screening for malignant neoplasm of cervix Category: Medical Plan: Patient is in need of cervical cancer screening (5) FRAGA (nonalcoholic steatohepatitis): Comment: BASELINE LABS 05/16/19 Ferritin 129 H [id number] 134 Ceruloplasmin 36 Anti-Smooth Muscle Ab <20 06/21/21 Hepatitis A IgM Ab Nonreactive Hep Bs Antigen Negative Hep Bs Antibody NONREACTIVE Hep B Core Total Ab Nonreactive Hepatitis C Ab (EIA) Nonreactive HIV 1&2 Ab/P24 Ag 4thGn Nonreactive Shear wave liver elastography median stiffness is 0.2 m/s (reference: normal median stiffness is 1.3 m/s or less). WBC 9.4 Hgb 13.4 Hct 40.5 MCV 90.6 Plt Count 383 Estimated GFR Direct Bilirubin 0.2 GGT 356 H Estimated GFR > 60 Hemoglobin A1c % 5.7 Total Bilirubin 0.6 AST 44 H ALT 105 H Alkaline Phosphatase 168 H TSH 3.39 CURRENT LABS; 09/30/22 433 H Estimated GFR Hgb A1c (Clinic) 5.7 Total Bilirubin Direct Bilirubin 0.2 Estimated GFR > 60 Hgb A1c (Clinic) Total Bilirubin 0.6 AST 45 H ALT 112 H Alkaline Phosphatase 170 H Alpha Fetoprotein 2.3 ULTRASOUND WITH elastography 07/2021 Shear wave liver elastography median stiffness is 0.2 m/s (reference: normal median stiffness is 1.3 m/s or less). US/US abdomen comp w elastography IMPRESSION: 1. Impression: Enlarged echogenic liver probably representing fatty infiltration. Mild splenomegaly. Question small right renal stone. Limited visualization of the tail the pancreas. ? 2. Liver elastography:? Slightly limited due to sampling error.? In the absence of other known clinical signs, rules out compensated advanced chronic liver disease. Code(s): K75.81 - Nonalcoholic steatohepatitis (FRAGA) Category: Medical Plan: Patient's liver enzymes remain elevated. Was followed by gastroenterology in the past. Has lost weight since doing a ketogenic diet. Interestingly her right upper quadrant abdominal pain has resolved since losing weight. Orders: Orders Comprehensive [place]. 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
[2024-10-20 08:55] VITALS: BP 134/86; PULSE 70; TEMP 36.2; O2SAT 95; BMI 38.2
== END 2024-10-20 09:43 | disposition home or self-care (01) ==
PROVIDERS: PCP Physician Assistant; Visit Provider Physician Assistant
DX: Z00.00 Encounter for general adult medical examination without abnormal findings (principal); E66.812 Obesity, class 2; Z68.38 Body mass index [BMI] 38.0-38.9, adult; L01.00 Impetigo, unspecified; K75.81 Nonalcoholic steatohepatitis (NASH)

== ENCOUNTER 2024-10-20 08:23 | Outpatient (REF) | payer OTHER, SELFPAY ==
--- OUTSIDE RECORDS SUMMARY | 2024-10-20 11:01 | XMS_ITS | Clinical Summary ---
Author Organization [facility] Address [address] [place] [address] Care Team Providers Care Evp Name Role Phone Unavailable Primary Care Provider [...]
--- OUTSIDE RECORDS SUMMARY | 2024-10-20 11:01 | XMS_ITS | Clinical Summary ---
Author Organization [facility] Address [address] [place] [address] Care Team Providers Care Cafeteria Supervisor Name Role Phone Unavailable Primary Care Provider [...] Cervical Cancer Screening 2010 Pap Smear 2010 [id number] ( season) 2024 Imm-Influenza (#1) 2024 Alcohol and Drug Screen 08/31/2024 Depression Annual Screen 08/31/2024 Tobacco Screening 04/25/2025 04/25/2024 Hypertension Screening (#1) 05/23/2025 Cervical Ablation/Cold-Knife Conization Discontinued Cervical Cryotherapy Discontinued Colposcopy Discontinued Endometrial Biopsy Discontinued Excision/Leep Discontinued HPV Genotyping Discontinued Vaginal Pap Discontinued Vulvoscopy Discontinued Insurance [employer]
[2024-10-20 11:04] LABS: Hematocrit 39.3 % (37.0-47.0); Hemoglobin 12.7 g/dl (12.0-16.0); Mean Corpuscular HGB Conc 32.3 g/dl (31.0-35.0); Mean Corpuscular Hemoglobin 29.3 pg (27.0-33.0); Mean Corpuscular Volume 90.6 fL (80.0-98.0); Mean Platelet Volume 9.9 fL (9.4-12.3); Platelet Count 432 X10*3/uL (160-400); Red Blood Count 4.34 X10*6/uL (4.20-5.50); Red Cell Distribution Width 12.3 % (11.0-16.0); White Blood Count 7.9 X10*3/uL (4.8-10.8)
[2024-10-20 11:14] LABS: Estimated Average Glucose 105 mg/dL; Hemoglobin A1C 115.6139 umol/L; Hemoglobin A1c % 5.3 % (<6.0); Total Hemoglobin (HGBA1C) 3356.1412 umol/L
[2024-10-20 11:34] LABS: Alanine Aminotransferase 95 U/L (0-31); Alkaline Phosphatase 158 U/L (39-117); Anion Gap 9 (12-20); Aspartate Amino Transferase 34 U/L (5-31); Bilirubin Total 0.3 mg/dL (0.0-1.0); Blood Urea Nitrogen 9 mg/dL (9-16); Calcium 9.3 mg/dL (8.4-10.2); Carbon Dioxide 28 mmol/L (22-29); Chloride 108 mmol/L (96-108); Estimated Glomerular Filt Rate > 60; Glucose Fasting 87 mg/dL (60-99); Potassium 3.8 mmol/L (3.3-5.1); Sodium 141 mmol/L (135-145); Total Protein 7.7 g/dL (6.5-8.0)
== END 2024-10-20 08:24 | disposition home or self-care (01) ==
LOC: HO.LAB 08:23
PROVIDERS: PCP Physician Assistant; Visit Provider Physician Assistant
DX: Z00.00 Encounter for general adult medical examination without abnormal findings (principal); E66.812 Obesity, class 2; L01.00 Impetigo, unspecified; K75.81 Nonalcoholic steatohepatitis (NASH); R73.09 Other abnormal glucose; K21.9 Gastro-esophageal reflux disease without esophagitis
CPT/HCPCS: 36415; 80053; 83036; 85027; 96127; 99395